=== PATIENT | male | born 1950 | race Caucasian/White ===

== ENCOUNTER → 2018-01-08 15:03 | Outpatient (CLI) | payer MEDICARE, OTHER, SELFPAY ==
--- NOTE | 2018-01-08 15:08 | CI_ITS ---
Cerebrovascular Exam Indications: 780.4 Dizziness and giddiness. IMPRESSIONS 1. The bilateral vertebral arteries are patent with normal antegrade flow. 2. Study suggests less than 20% stenosis involving the right internal carotid artery and the left internal carotid artery. History: Transient ischemic attack (2013) Risk factors: Current tobacco use. Diabetes mellitus. Carotid duplex study. Complete study and Doppler flow study including spectral analysis, color and dodge scale imaging. Height: Height: 182.9cm. Height: 72in. Weight: Weight: 103.4kg. Weight: 227.5lb. Body mass index: BMI: 30.9kg/m^2. Body surface area: BSA: 2.32m^2. Location: Vascular laboratory. Patient status: Outpatient. Tables: Arterial flow: + +--------+--------+ Location V sys V ed + +--------+--------+ Right CCA - proximal 116cm/s 20.4cm/s + +--------+--------+ Right CCA - distal 89.6cm/s 22cm/s + +--------+--------+ Right ECA 84.9cm/s -------- + +--------+--------+ Right ICA - proximal 44.7cm/s 15.4cm/s + +--------+--------+ Right ICA - mid 64.5cm/s 16.6cm/s + +--------+--------+ Right ICA - distal 86.1cm/s 26.8cm/s + +--------+--------+ Right vertebral 56.6cm/s -------- + +--------+--------+ Left CCA - proximal 130cm/s 16.5cm/s + +--------+--------+ Left CCA - distal 109cm/s 18.1cm/s + +--------+--------+ Left ECA 111cm/s -------- + +--------+--------+ Left ICA - proximal 60.9cm/s 14.2cm/s + +--------+--------+ Left ICA - mid 103cm/s 25.1cm/s + +--------+--------+ Left ICA - distal 92.2cm/s 29.3cm/s + +--------+--------+ Left vertebral 46.1cm/s -------- + +--------+--------+ Velocity ratios: + + + + + + Right, V sys Right, V ed Left, V sys Left, V ed + + + + + + Max ICA/dist CCA 0.96 1.22 0.94 1.62 + + + + + + (Report amended ) Electronically signed by: Luis Miguel Fay [id number]
== END ==
PROVIDERS: PCP Nurse Practitioner Family; Visit Provider Nurse Practitioner
DX: R42 Dizziness and giddiness (principal)
CPT/HCPCS: 93880

== ENCOUNTER → 2018-07-02 10:21 | Outpatient (CLI) | payer MEDICARE, OTHER, SELFPAY ==
--- NOTE | 2018-07-02 10:38 | XR_ITS ---
XR chest 2V HISTORY: Smoker, hypertension ITS.REASON: TYPE II DIABETES ORDERING PHYSICIAN: Janelle Melendrez PATIENT AGE: 68 years COMPARISON: 01/09/2010 FINDINGS: Unremarkable cardiovascular structures. There is an old left seventh rib fracture. There is increased density overlying the posterior aspect of the left seventh rib somewhat less so than when compared to the previous exam and may be due to underlying scarring. There are no interval radiographs for comparison. The right lung is clear. IMPRESSION: Old left seventh rib fracture with scarring in the left midlung laterally.
[2018-07-02 11:15] LABS: Basophils # 0.1 K/mm3 (0-0.2); Basophils % 0.7 % (0.1-2.0); Eosinophils # 0.2 K/mm3 (0.0-0.4); Eosinophils % 2.4 % (0.1-12.0); Hematocrit 50.6 % (42.0-52.0); Hemoglobin 16.5 g/dL (14.1-18.0); Lymphocytes # 2.8 K/mm3 (0.7-4.5); Lymphocytes % 35.4 K/mm3 (10-50); Mean Corpuscular HGB Conc 32.5 g/dL (31.8-35.4); Mean Corpuscular Hemoglobin 28.8 pg (27.0-31.2); Mean Corpuscular Volume 88.6 fl (80-94); Mean Platelet Volume 7.6 fl (7.4-10.4); Monocytes # 0.5 K/mm3 (0.1-1.0); Monocytes % 6.3 % (1.7-9.3); Neutrophils # 4.3 K/mm3 (1.8-7.8); Neutrophils % 55.2 % (37.0-80.0); Platelet Count 211 K/mm3 (142-424); Red Blood Count 5.72 M/mm3 (4.60-6.20); Red Cell Distribution Width 13.6 % (11.5-17.5); White Blood Count 7.8 K/mm3 (4.8-10.8)
[2018-07-02 11:24] LABS: Activated Partial Thrombo Time 28.2 seconds (23.6-34.0); INR 1.03 (0.9-1.1); Prothrombin Time 10.6 seconds (9.4-11.8)
[2018-07-02 16:14] LABS: Alanine Aminotransferase 21 U/L (12-78); Albumin Level 3.9 gm/dL (3.4-5.0); Albumin/Globulin Ratio 1.1 (1.1-1.8); Alkaline Phosphatase 131 U/L (46-116); Anion Gap 18.3 mEq/L (5-15); Aspartate Amino Transferase 8 U/L (15-37); Bilirubin,Total 0.8 mg/dL (0.2-1.0); Blood Urea Nitrogen 15 mg/dL (7-18); Calcium 9.5 mg/dL (8.5-10.1); Carbon Dioxide 25 mmol/L (21.0-32.0); Chloride 103 mmol/L (98-107); Creatinine,Serum 1.26 mg/dL (0.70-1.30); Estimated Glomerular Filt Rate 57 ml/min (>60); GFR (African American) 69 ML/MIN (>60); Globulin 3.5 gm/dl (1.3-3.2); Glucose 127 mg/dL (74-106); Potassium 5.3 mmoL/L (3.5-5.1); Sodium 141 mmol/L (136-145); Total Protein,Serum 7.4 gm/dL (6.4-8.2)
[2018-07-05 18:26] LABS: CEA 33.9 ng/mL (0.0-4.7)
== END ==
PROVIDERS: Surgery; PCP Family Medicine; Visit Provider Nurse Practitioner Family
DX: C18.9 Malignant neoplasm of colon, unspecified (principal); Z01.818 Encounter for other preprocedural examination; E11.9 Type 2 diabetes mellitus without complications
CPT/HCPCS: 36415; 71046; 80053; 82378; 85025; 85610; 85730; 93005

== ENCOUNTER → 2018-07-05 09:19 | Outpatient (CLI) | payer MEDICARE, OTHER, SELFPAY ==
--- NOTE | 2018-07-05 09:21 | CT_ITS ---
CT abdomen pelvis w con CLINICAL INDICATION: Follow-up: Cancer, evaluate for metastasis ITS.REASON: colon cancer ORDERING PHYSICIAN: Rashawn Guzman MD PATIENT AGE: 68 years COMPARISON: 06/22/2015 TECHNIQUE: Axial images obtained with sagittal and coronal reformats. All CT scans at the facility use one or more dose reduction, viz: automated exposure control, ma/kV adjustment per patient size (including targeted exams where dose is matched to indication, i.e. head), or iterative reconstruction technique. PROCEDURE: Oral Contrast: Redicat IV Contrast: 75 mL of Isovue-370 performed in conjunction with the chest. FINDINGS: There are multiple small hypoattenuating lesions of the liver largest in the right hepatic lobe inferiorly at 7 mm. These are likely due to small cysts. The spleen, right adrenal gland and pancreas are unremarkable. There are few small gallstones present. No gallbladder wall thickening or distention. Normal left adrenal gland is not identified. There are 2 faint nodular opacities in the left adrenal bed less than 1 cm not significantly change. Surgical clips are present in this region as well.. No renal or ureteral calculi or hydronephrosis. There is mild stranding of perinephric renal fat which is nonspecific and was present on the previous exam. No intestinal obstruction or free air. The appendix is not clearly delineated. The cecum is flexed upon itself residing in the right upper quadrant. There is thickening of the anterior cecal wall which abuts the anterior abdominal wall. The area of colon cancer is not no. This could be the area of neoplastic involvement. This area of thickening is in direct contact to the posterior aspect of the anterior abdominal wall. There is diverticulosis of the descending and sigmoid colon. No evidence of diverticulitis. There is mild prominence of the prostate. No pelvic mass or abnormal fluid collection. No pelvic or abdominal adenopathy. No bony lytic or blastic changes. IMPRESSION: 1. Focal thickening of the anterior wall of the cecum in direct contact with the deep aspect of the anterior abdominal wall. This may only be positional. One cannot exclude involvement of the anterior abdominal wall based on these images however. Please correlate as to the patient's area of colon cancer within the colon. 2. Multiple hypoattenuating lesions of the liver consistent with cysts. No convincing evidence of metastatic disease. 3. Colonic diverticulosis
--- NOTE | 2018-07-05 09:21 | CT_ITS ---
CT chest w con HISTORY: Follow-up: Cancer, evaluate for metastasis ITS.REASON: colon cancer ORDERING PHYSICIAN: Rashawn Guzman MD PATIENT AGE: 68 years COMPARISON: None TECHNIQUE: Axial images obtained following the administration of 75 mL of Isovue 370 . Sagittal, and coronal reformatted images are also generated and reviewed. All CT scans at the facility use one or more dose reduction, viz: automated exposure control, ma/kV adjustment per patient size (including targeted exams where dose is matched to indication, i.e. head), or iterative reconstruction technique. FINDINGS: No mediastinal or hilar mass or adenopathy. There is small mediastinal and hilar lymph nodes. There are coronary artery calcifications. Normal heart size. No evidence of pericardial effusion. There is an azygos fissure is normal variant 3 mm noncalcified pulmonary nodule right upper lobe image #34. A 5 mm noncalcified nodular densities present in the right upper lobe anteriorly image #37. A 7 mm nodular opacity is present in the left anterior perihilar region image # 37 and may be due to a small lymph node. There is a calcified granuloma in the left upper lobe. Atelectatic or fibrotic changes are present in the left lower lobe. No effusions or infiltrates. There is no fracture of the left a and seventh ribs with some pleural thickening deep to the left seventh rib fracture.. No bony destructive process. No lytic or blastic lesions. IMPRESSION: 1. No convincing evidence of metastasis. There are a few small pulmonary nodules. These are nonspecific and may be incidental. Cannot completely exclude the possibility of early metastasis. Therefore, follow-up is recommended 2. Old left seventh and eighth rib fractures with underlying pleural reaction
== END ==
PROVIDERS: PCP Family Medicine; Visit Provider Surgery
DX: C18.9 Malignant neoplasm of colon, unspecified (principal); Z03.89 Encounter for observation for other suspected diseases and conditions ruled out
CPT/HCPCS: 71260; 74177; Q9967

== ENCOUNTER → 2018-07-26 11:14 | Outpatient (CLI) | payer MEDICARE, OTHER, SELFPAY ==
--- NOTE | 2018-07-26 11:29 | NVE_ITS ---
Venous Exam Indications: 729.81 Swelling of limb. 729.5 Pain in limb. IMPRESSIONS Moderate, acute, occlusive deep vein thrombosis involving the deep veins of the left lower extremity, left common femoral vein, left femoral vein, and left popliteal vein History: Left lower extremity pain. Swelling of the left lower extremity. PMH: Deep vein thrombosis. Patient states he had a DVT many years ago in the LLE near the knee. No record at [facility]. Risk factors: Current tobacco use. Malignancy: Colon. Patient recently diagnosed with colon cancer. He is scheduled for colon surgery next week. He states he began having pain in the left upper thigh 1-2 days ago. He states it feels similar to his previous DVT. He went to the emergency room last night for evaluation of his leg due to upcoming surgery. Medications: Patient recently stopped taking Aggrenox due to upcoming surgery. Left lower extremity venous duplex evaluation. Doppler flow study including spectral analysis, color and dodge scale imaging. Location: Vascular laboratory. Patient status: Outpatient. CRITICAL FINDINGS - Reported to: Janelle Melendrez - Read back and verified. - 07/26/18 - 11:45 - LLE positive for DVT in the CFV, Femoral vein, POPV Tables: Venous flow and imaging: + + + + Location Overall Flow properties + + + + Left common femoral Totally occluded Partially compressible + + + + Left saphenofemoral Totally occluded Partially compressible junction + + + + Left profunda femoral Totally occluded Partially compressible + + + + Left femoral Totally occluded Diminished spontaneity; no augmentation; noncompressible + + + + Left greater saphenous Patent Normal phasicity; spontaneous; normal augmentation; compressible + + + + Left popliteal Totally occluded No augmentation; noncompressible + + + + Left posterior tibial Patent Compressible + + + + Left peroneal Patent Compressible + + + + Left gastrocnemius Patent Compressible + + + + Left soleal Patent Compressible + + + + (Report amended ) Electronically signed by: Luis Miguel Fay [id number]
== END ==
PROVIDERS: PCP Nurse Practitioner Family; Visit Provider Nurse Practitioner Family
DX: R60.1 Generalized edema (principal); M79.89 Other specified soft tissue disorders
CPT/HCPCS: 93971

== ENCOUNTER → 2018-08-07 08:24 | Outpatient (CLI) | payer MEDICARE, OTHER, SELFPAY ==
--- NOTE | 2018-08-07 | NVE_ITS ---
Venous Exam Indications: 729.5 Pain in limb. IMPRESSIONS Deep vein thrombosis involving the left common femoral vein, left femoral vein, left popliteal vein, Left posterior tib, and Left peroneal History: PMH: Deep vein thrombosis. Risk factors: Malignancy: colon ca. Pt recentlu dx with colon cancer, DVT dx on 07/26/18, repeat doppler today because surgeon wants to remove portion of colon on 08/12/18. pt been on Xarelto since 08/07/18. Pt recently stopped Aggrenox due to upcoming surgery. Left lower extremity venous duplex evaluation. Doppler flow study including spectral analysis, color and dodge scale imaging. Location: Vascular laboratory. Patient status: Outpatient. Tables: Venous flow and imaging: + + + + Location Overall Flow properties + + + + Left common femoral Partially occluded Diminished phasicity; diminished spontaneity; diminished augmentation; partially compressible; reflux + + + + Left saphenofemoral Partially occluded Partially compressible junction + + + + Left profunda femoral Partially occluded Partially compressible + + + + Left femoral Partially occluded Normal phasicity; spontaneous; normal augmentation; compressible + + + + Left greater saphenous Patent Normal phasicity; spontaneous; normal augmentation; compressible + + + + Left popliteal Partially occluded Diminished phasicity; not spontaneous; diminished augmentation; partially compressible + + + + Left posterior tibial Partially occluded Partially compressible + + + + Left peroneal Partially occluded Partially compressible + + + + Left gastrocnemius Patent Compressible + + + + Left soleal Patent Compressible + + + + (Report amended ) Electronically signed by: Luis Miguel Fay [id number]
== END ==
PROVIDERS: PCP Nurse Practitioner Family; Visit Provider Nurse Practitioner Family
DX: I82.412 Acute embolism and thrombosis of left femoral vein (principal); M79.605 Pain in left leg
CPT/HCPCS: 93971

== ENCOUNTER → 2018-10-16 10:41 | Outpatient (CLI) | payer MEDICARE, OTHER, SELFPAY ==
[2018-10-16 12:07] LABS: Basophils # 0.1 K/mm3 (0-0.2); Eosinophils # 0.1 K/mm3 (0.0-0.4); Eosinophils % 2.2 % (0.1-12.0); Hematocrit 47.3 % (42.0-52.0); Hemoglobin 14.9 g/dL (14.1-18.0); Lymphocytes # 2.2 K/mm3 (0.7-4.5); Lymphocytes % 39.9 % (10-50); Mean Corpuscular HGB Conc 31.6 g/dL (31.8-35.4); Mean Corpuscular Hemoglobin 27.5 pg (27.0-31.2); Mean Corpuscular Volume 86.9 fl (80-94); Mean Platelet Volume 8.1 fl (7.4-10.4); Monocytes # 0.4 K/mm3 (0.1-1.0); Monocytes % 7.3 % (1.7-9.3); Neutrophils # 2.8 K/mm3 (1.8-7.8); Neutrophils % 49.5 % (37.0-80.0); Platelet Count 195 K/mm3 (142-424); Red Blood Count 5.44 M/mm3 (4.60-6.20); White Blood Count 5.6 K/mm3 (4.8-10.8)
[2018-10-16 13:11] LABS: Alanine Aminotransferase 27 U/L (12-78); Albumin Level 3.6 gm/dL (3.4-5.0); Albumin/Globulin Ratio 1.1 (1.1-1.8); Alkaline Phosphatase 98 U/L (46-116); Anion Gap 15.2 mEq/L (5-15); Aspartate Amino Transferase 16 U/L (15-37); Bilirubin,Total 0.5 mg/dL (0.2-1.0); Blood Urea Nitrogen 11 mg/dL (7-18); Carbon Dioxide 27 mmol/L (21.0-32.0); Chloride 102 mmol/L (98-107); Creatinine,Serum 1.06 mg/dL (0.70-1.30); Estimated Glomerular Filt Rate 70 ml/min (>60); GFR (African American) 84 ML/MIN (>60); Globulin 3.2 gm/dl (1.3-3.2); Glucose 129 mg/dL (74-106); Potassium 4.2 mmoL/L (3.5-5.1); Sodium 140 mmol/L (136-145); Total Protein,Serum 6.8 gm/dL (6.4-8.2)
== END ==
PROVIDERS: Visit Provider Internal Medicine Medical Oncology
DX: C18.9 Malignant neoplasm of colon, unspecified (principal)
CPT/HCPCS: 36415; 80053; 85025

== ENCOUNTER 2018-10-21 09:01 | Outpatient (CLI) | payer MEDICARE, OTHER, SELFPAY ==
[2018-10-21] VITALS (10 sets, daily range): BP systolic 118–140; BP diastolic 50–67; PULSE 56–68; RESP 18–20; TEMP 36.7–36.9; O2SAT 95–96
== END 2018-10-21 13:10 | disposition home or self-care (01) ==
LOC: INF 09:01
PROVIDERS: Visit Provider Internal Medicine Medical Oncology
DX: Z51.11 Encounter for antineoplastic chemotherapy (principal); C18.9 Malignant neoplasm of colon, unspecified
CPT/HCPCS: 96413; 96415; J7060; J9263; Q0166

== ENCOUNTER → 2018-11-06 12:32 | Outpatient (CLI) | payer MEDICARE, OTHER, SELFPAY ==
[2018-11-06 13:26] LABS: Basophils % 0.4 % (0.1-2.0); Eosinophils # 0.1 K/mm3 (0.0-0.4); Eosinophils % 1.9 % (0.1-12.0); Hematocrit 44.8 % (42.0-52.0); Hemoglobin 14.2 g/dL (14.1-18.0); Lymphocytes # 2.4 K/mm3 (0.7-4.5); Lymphocytes % 42.3 % (10-50); Mean Corpuscular HGB Conc 31.8 g/dL (31.8-35.4); Mean Corpuscular Hemoglobin 27.4 pg (27.0-31.2); Mean Corpuscular Volume 86.2 fl (80-94); Mean Platelet Volume 7.2 fl (7.4-10.4); Monocytes # 0.3 K/mm3 (0.1-1.0); Monocytes % 5.9 % (1.7-9.3); Neutrophils # 2.8 K/mm3 (1.8-7.8); Neutrophils % 49.5 % (37.0-80.0); Platelet Count 180 K/mm3 (142-424); Red Blood Count 5.19 M/mm3 (4.60-6.20); Red Cell Distribution Width 14.9 % (11.5-17.5); White Blood Count 5.7 K/mm3 (4.8-10.8)
[2018-11-06 13:44] LABS: Alanine Aminotransferase 35 U/L (12-78); Albumin Level 3.5 gm/dL (3.4-5.0); Albumin/Globulin Ratio 1.1 (1.1-1.8); Alkaline Phosphatase 118 U/L (46-116); Anion Gap 13.6 mEq/L (5-15); Aspartate Amino Transferase 15 U/L (15-37); Bilirubin,Total 0.5 mg/dL (0.2-1.0); Blood Urea Nitrogen 8 mg/dL (7-18); Calcium 8.5 mg/dL (8.5-10.1); Carbon Dioxide 25 mmol/L (21.0-32.0); Chloride 104 mmol/L (98-107); Creatinine,Serum 1.13 mg/dL (0.70-1.30); Estimated Glomerular Filt Rate 65 ml/min (>60); GFR (African American) 78 ML/MIN (>60); Globulin 3.1 gm/dl (1.3-3.2); Glucose 125 mg/dL (74-106); Potassium 4.6 mmoL/L (3.5-5.1); Sodium 138 mmol/L (136-145); Total Protein,Serum 6.6 gm/dL (6.4-8.2)
== END ==
PROVIDERS: Visit Provider Internal Medicine Medical Oncology
DX: C18.9 Malignant neoplasm of colon, unspecified (principal)
CPT/HCPCS: 36415; 80053; 85025

== ENCOUNTER 2018-11-11 09:15 | Outpatient (CLI) | payer MEDICARE, OTHER, SELFPAY ==
[2018-11-11] VITALS (8 sets, daily range): BP systolic 119–131; BP diastolic 60–69; PULSE 61–74; RESP 18–20; TEMP 36.5; O2SAT 96–97; BMI 29.7
== END 2018-11-11 14:00 | disposition home or self-care (01) ==
LOC: INF 09:37
PROVIDERS: Visit Provider Internal Medicine Medical Oncology
DX: Z51.11 Encounter for antineoplastic chemotherapy (principal); C18.9 Malignant neoplasm of colon, unspecified
CPT/HCPCS: 96413; 96415; J1642; J7060; J9263; Q0166

== ENCOUNTER 2018-12-02 08:48 | Outpatient (CLI) | payer MEDICARE, OTHER, SELFPAY ==
[2018-12-02] VITALS (8 sets, daily range): BP systolic 116–130; BP diastolic 63–74; PULSE 64–68; RESP 20; TEMP 36.9; O2SAT 95; BMI 28.6
[2018-12-02 09:11] LABS: Basophils % 0.8 % (0.1-2.0); Eosinophils # 0.1 K/mm3 (0.0-0.4); Eosinophils % 2.1 % (0.1-12.0); Hematocrit 43.9 % (42.0-52.0); Hemoglobin 14.2 g/dL (14.1-18.0); Lymphocytes % 41.7 % (10-50); Mean Corpuscular HGB Conc 32.3 g/dL (31.8-35.4); Mean Corpuscular Volume 86.7 fl (80-94); Mean Platelet Volume 6.7 fl (7.4-10.4); Monocytes # 0.3 K/mm3 (0.1-1.0); Monocytes % 6.9 % (1.7-9.3); Neutrophils # 2.3 K/mm3 (1.8-7.8); Neutrophils % 48.4 % (37.0-80.0); Platelet Count 135 K/mm3 (142-424); Red Blood Count 5.06 M/mm3 (4.60-6.20); Red Cell Distribution Width 19.4 % (11.5-17.5); White Blood Count 4.8 K/mm3 (4.8-10.8)
[2018-12-02 09:23] LABS: Alanine Aminotransferase 28 U/L (12-78); Albumin Level 3.4 gm/dL (3.4-5.0); Alkaline Phosphatase 93 U/L (46-116); Anion Gap 13.1 mEq/L (5-15); Aspartate Amino Transferase 17 U/L (15-37); Bilirubin,Total 0.6 mg/dL (0.2-1.0); Blood Urea Nitrogen 10 mg/dL (7-18); Calcium 8.6 mg/dL (8.5-10.1); Carbon Dioxide 25 mmol/L (21.0-32.0); Chloride 105 mmol/L (98-107); Creatinine Clearance Estimated 90 mL/min (50-200); Creatinine,Serum 1.08 mg/dL (0.70-1.30); Estimated Glomerular Filt Rate 68 ml/min (>60); GFR (African American) 83 ML/MIN (>60); Globulin 3.4 gm/dl (1.3-3.2); Glucose 108 mg/dL (74-106); Potassium 4.1 mmoL/L (3.5-5.1); Sodium 139 mmol/L (136-145); Total Protein,Serum 6.8 gm/dL (6.4-8.2)
== END 2018-12-02 13:30 | disposition home or self-care (01) ==
LOC: INF 08:48
PROVIDERS: Visit Provider Internal Medicine Medical Oncology
DX: Z51.11 Encounter for antineoplastic chemotherapy (principal); C18.9 Malignant neoplasm of colon, unspecified
CPT/HCPCS: 80053; 85025; 96413; 96415; J1642; J7060; J9263; Q0166

== ENCOUNTER 2018-12-23 09:14 | Outpatient (CLI) | payer MEDICARE, OTHER, SELFPAY ==
[2018-12-23] VITALS (9 sets, daily range): BP systolic 117–156; BP diastolic 56–77; PULSE 64–74; RESP 20; TEMP 36.8; O2SAT 97–98; BMI 28.6
[2018-12-23 09:30] LABS: Basophils # 0.1 K/mm3 (0-0.2); Eosinophils # 0.1 K/mm3 (0.0-0.4); Hematocrit 45.9 % (42.0-52.0); Hemoglobin 15.1 g/dL (14.1-18.0); Lymphocytes % 42.9 % (10-50); Mean Corpuscular HGB Conc 32.9 g/dL (31.8-35.4); Mean Corpuscular Volume 88.4 fl (80-94); Mean Platelet Volume 7.6 fl (7.4-10.4); Monocytes # 0.3 K/mm3 (0.1-1.0); Monocytes % 6.9 % (1.7-9.3); Neutrophils # 2.2 K/mm3 (1.8-7.8); Neutrophils % 47.2 % (37.0-80.0); Platelet Count 151 K/mm3 (142-424); Red Blood Count 5.19 M/mm3 (4.60-6.20); Red Cell Distribution Width 21.5 % (11.5-17.5); White Blood Count 4.6 K/mm3 (4.8-10.8)
[2018-12-23 09:43] LABS: Alanine Aminotransferase 30 U/L (12-78); Albumin Level 3.6 gm/dL (3.4-5.0); Alkaline Phosphatase 98 U/L (46-116); Anion Gap 13.3 mEq/L (5-15); Aspartate Amino Transferase 23 U/L (15-37); Bilirubin,Total 0.9 mg/dL (0.2-1.0); Blood Urea Nitrogen 9 mg/dL (7-18); Calcium 8.8 mg/dL (8.5-10.1); Carbon Dioxide 25 mmol/L (21.0-32.0); Chloride 105 mmol/L (98-107); Creatinine Clearance Estimated 97 mL/min (50-200); Creatinine,Serum 0.95 mg/dL (0.70-1.30); Estimated Glomerular Filt Rate 79 ml/min (>60); GFR (African American) 96 ML/MIN (>60); Globulin 3.5 gm/dl (1.3-3.2); Glucose 115 mg/dL (74-106); Potassium 4.3 mmoL/L (3.5-5.1); Sodium 139 mmol/L (136-145); Total Protein,Serum 7.1 gm/dL (6.4-8.2)
== END 2018-12-23 14:15 | disposition home or self-care (01) ==
LOC: INF 09:14
PROVIDERS: Visit Provider Internal Medicine Medical Oncology
DX: Z51.11 Encounter for antineoplastic chemotherapy (principal); C18.9 Malignant neoplasm of colon, unspecified
CPT/HCPCS: 80053; 85025; 96413; 96415; J7060; J9263; Q0166

== ENCOUNTER 2019-01-14 08:55 | Outpatient (CLI) | payer MEDICARE, OTHER, SELFPAY ==
[2019-01-14] VITALS (8 sets, daily range): BP systolic 136–173; BP diastolic 71–79; PULSE 64–69; RESP 18; TEMP 36.6; O2SAT 97–98; BMI 28.0
[2019-01-14 09:14] LABS: Basophils % 0.5 % (0.1-2.0); Eosinophils # 0.1 K/mm3 (0.0-0.4); Eosinophils % 2.1 % (0.1-12.0); Hematocrit 44.3 % (42.0-52.0); Hemoglobin 14.8 g/dL (14.1-18.0); Lymphocytes % 46.5 % (10-50); Mean Corpuscular HGB Conc 33.3 g/dL (31.8-35.4); Mean Corpuscular Hemoglobin 30.3 pg (27.0-31.2); Mean Corpuscular Volume 90.9 fl (80-94); Mean Platelet Volume 7.8 fl (7.4-10.4); Monocytes # 0.3 K/mm3 (0.1-1.0); Monocytes % 6.9 % (1.7-9.3); Neutrophils # 1.9 K/mm3 (1.8-7.8); Platelet Count 117 K/mm3 (142-424); Red Blood Count 4.88 M/mm3 (4.60-6.20); Red Cell Distribution Width 22.5 % (11.5-17.5); White Blood Count 4.4 K/mm3 (4.8-10.8)
[2019-01-14 09:36] LABS: Alanine Aminotransferase 27 U/L (12-78); Albumin Level 3.6 gm/dL (3.4-5.0); Alkaline Phosphatase 114 U/L (46-116); Anion Gap 14.2 mEq/L (5-15); Aspartate Amino Transferase 23 U/L (15-37); Bilirubin,Total 0.8 mg/dL (0.2-1.0); Blood Urea Nitrogen 12 mg/dL (7-18); Calcium 8.6 mg/dL (8.5-10.1); Carbon Dioxide 25 mmol/L (21.0-32.0); Chloride 105 mmol/L (98-107); Creatinine Clearance Estimated 92 mL/min (50-200); Creatinine,Serum 1.04 mg/dL (0.70-1.30); Estimated Glomerular Filt Rate 71 ml/min (>60); GFR (African American) 86 ML/MIN (>60); Globulin 3.5 gm/dl (1.3-3.2); Glucose 106 mg/dL (74-106); Potassium 4.2 mmoL/L (3.5-5.1); Sodium 140 mmol/L (136-145); Total Protein,Serum 7.1 gm/dL (6.4-8.2)
== END 2019-01-14 14:00 | disposition home or self-care (01) ==
LOC: INF 08:55
PROVIDERS: Visit Provider Internal Medicine Medical Oncology
DX: Z51.11 Encounter for antineoplastic chemotherapy (principal); C18.9 Malignant neoplasm of colon, unspecified
CPT/HCPCS: 80053; 85025; 96413; 96415; J1642; J7060; J9263; Q0166

== ENCOUNTER → 2019-02-20 14:43 | Outpatient (CLI) | payer MEDICARE, OTHER, SELFPAY ==
[2019-02-20 15:04] LABS: Basophils # 0.1 K/mm3 (0-0.2); Basophils % 0.9 % (0.1-2.0); Eosinophils # 0.1 K/mm3 (0.0-0.4); Eosinophils % 1.8 % (0.1-12.0); Hematocrit 45.2 % (42.0-52.0); Hemoglobin 15.1 g/dL (14.1-18.0); Lymphocytes # 2.5 K/mm3 (0.7-4.5); Mean Corpuscular HGB Conc 33.4 g/dL (31.8-35.4); Mean Corpuscular Volume 98.7 fl (80-94); Mean Platelet Volume 7.4 fl (7.4-10.4); Monocytes # 0.3 K/mm3 (0.1-1.0); Neutrophils # 2.1 K/mm3 (1.8-7.8); Neutrophils % 41.4 % (37.0-80.0); Platelet Count 119 K/mm3 (142-424); Red Blood Count 4.58 M/mm3 (4.60-6.20); Red Cell Distribution Width 21.4 % (11.5-17.5); White Blood Count 5.1 K/mm3 (4.8-10.8)
[2019-02-20 15:14] LABS: MANUAL DIFFERENTIAL MANUAL DIFFERENTIAL (MANUAL DIFF)
[2019-02-20 17:03] LABS: Alanine Aminotransferase 29 U/L (12-78); Albumin/Globulin Ratio 1.1 (1.1-1.8); Alkaline Phosphatase 107 U/L (46-116); Anion Gap 11.5 mEq/L (5-15); Aspartate Amino Transferase 19 U/L (15-37); Blood Urea Nitrogen 16 mg/dL (7-18); Carbon Dioxide 29 mmol/L (21.0-32.0); Chloride 103 mmol/L (98-107); Creatinine,Serum 1.14 mg/dL (0.70-1.30); Estimated Glomerular Filt Rate 64 ml/min (>60); GFR (African American) 78 ML/MIN (>60); Globulin 3.5 gm/dl (1.3-3.2); Glucose 102 mg/dL (74-106); Potassium 4.5 mmoL/L (3.5-5.1); Sodium 139 mmol/L (136-145); Total Protein,Serum 7.5 gm/dL (6.4-8.2)
[2019-02-20 17:48] LABS: Lymphocytes % 44 % (10-50); Monocytes % 6 % (2-9); Neutrophils % 49 % (42-76); Platelet Estimate Normal; RBC Morphology Normal; Total Cells Counted 100
== END ==
PROVIDERS: Visit Provider Internal Medicine Medical Oncology
DX: C18.9 Malignant neoplasm of colon, unspecified (principal)
CPT/HCPCS: 36415; 80053; 85007; 85025

== ENCOUNTER 2019-02-25 09:31 | Outpatient (CLI) | payer MEDICARE, OTHER, SELFPAY | END 2019-02-25 09:45 | disposition home or self-care (01) | LOC: INF 09:31 | PROVIDERS: Visit Provider Internal Medicine Medical Oncology | DX: C18.9 Malignant neoplasm of colon, unspecified (principal); Z45.2 Encounter for adjustment and management of vascular access device | CPT/HCPCS: 96523 ==

== ENCOUNTER → 2019-04-07 12:37 | Outpatient (CLI) | payer MEDICARE, OTHER, SELFPAY ==
[2019-04-07 13:34] LABS: Basophils # 0.1 K/mm3 (0-0.2); Basophils % 0.9 % (0.1-2.0); Eosinophils # 0.3 K/mm3 (0.0-0.4); Eosinophils % 4.5 % (0.1-12.0); Hematocrit 47.9 % (42.0-52.0); Hemoglobin 15.2 g/dL (14.1-18.0); Lymphocytes # 2.6 K/mm3 (0.7-4.5); Lymphocytes % 37.6 % (10-50); Mean Corpuscular HGB Conc 31.7 g/dL (31.8-35.4); Mean Corpuscular Hemoglobin 30.4 pg (27.0-31.2); Mean Platelet Volume 7.8 fl (7.4-10.4); Monocytes # 0.5 K/mm3 (0.1-1.0); Monocytes % 7.5 % (1.7-9.3); Neutrophils # 3.4 K/mm3 (1.8-7.8); Neutrophils % 49.5 % (37.0-80.0); Platelet Count 157 K/mm3 (142-424); Red Blood Count 4.99 M/mm3 (4.60-6.20); Red Cell Distribution Width 16.4 % (11.5-17.5); White Blood Count 6.9 K/mm3 (4.8-10.8)
[2019-04-07 14:48] LABS: Alanine Aminotransferase 30 U/L (12-78); Albumin Level 3.5 gm/dL (3.4-5.0); Albumin/Globulin Ratio 1.1 (1.1-1.8); Alkaline Phosphatase 151 U/L (46-116); Anion Gap 14.3 mEq/L (5-15); Aspartate Amino Transferase 23 U/L (15-37); Bilirubin,Total 0.9 mg/dL (0.2-1.0); Blood Urea Nitrogen 18 mg/dL (7-18); Carbon Dioxide 25 mmol/L (21.0-32.0); Chloride 106 mmol/L (98-107); Creatinine,Serum 1.27 mg/dL (0.70-1.30); Estimated Glomerular Filt Rate 57 ml/min (>60); GFR (African American) 68 ML/MIN (>60); Globulin 3.2 gm/dl (1.3-3.2); Glucose 140 mg/dL (74-106); Potassium 4.3 mmoL/L (3.5-5.1); Sodium 141 mmol/L (136-145); Total Protein,Serum 6.7 gm/dL (6.4-8.2)
== END ==
PROVIDERS: Visit Provider Internal Medicine Medical Oncology
DX: G89.3 Neoplasm related pain (acute) (chronic) (principal)
CPT/HCPCS: 36415; 80053; 85025; 86316

== ENCOUNTER 2019-04-11 09:28 | Outpatient (CLI) | payer MEDICARE, OTHER, SELFPAY ==
--- NOTE | 2019-04-11 09:35 | CT_ITS ---
CT abdomen pelvis w con CLINICAL INDICATION: ITS.REASON: COLON CA ORDERING PHYSICIAN: Jenny Joyner MD PATIENT AGE: 69 years COMPARISON: 07/05/2018. TECHNIQUE: Axial images obtained with sagittal and coronal reformats. All CT scans at the facility use one or more dose reduction, viz: automated exposure control, ma/kV adjustment per patient size (including targeted exams where dose is matched to indication, i.e. head), or iterative reconstruction technique. PROCEDURE: Oral Contrast: None IV Contrast: Yes . FINDINGS: Lower thorax: There is a new noncalcified 3.0 mm nodule at the lateral base of the right lower lobe of the lung likely involving the anterior segment close to the major fissure on image #14. There is some stable strands of increased density in the posterior left lower lobe. There is also a benign calcified lingular granuloma. There are now multiple new liver hypodensities, with one of the larger foci in the periphery of the posterior right lower lobe measuring 2.0 cm. There are a few other similar lesions although the other foci are smaller. The spleen, pancreas, adrenal glands and kidneys are unremarkable. Urinary bladder is normal. There are aortic calcified plaques without dilatation. There has been partial colectomy on the right side. There are now some new punctate noncalcified nodular densities along the right anterior and right lateral peritoneum. These measure almost 10 mm in size. There are several gallstones without pericholecystic fluid or wall thickening. There is no biliary or pancreatic ductal dilatation. Pelvis appear stable and unremarkable. There is no acute osseous process. Impression: Above-described findings are worrisome for metastatic neoplasm with new liver lesions as well as right-sided possible peritoneal carcinomatosis. Also there is a new right lung base 3 mm noncalcified nodule, possibly metastatic in nature. Uncomplicated cholelithiasis. Left lower lobe lung scarring.
== END 2019-04-11 10:25 | disposition home or self-care (01) ==
LOC: INF 09:29
PROVIDERS: PCP Internal Medicine Medical Oncology; Visit Provider Internal Medicine Medical Oncology
DX: C18.9 Malignant neoplasm of colon, unspecified (principal); Z45.2 Encounter for adjustment and management of vascular access device
CPT/HCPCS: 74177; J1642; Q9967

== ENCOUNTER → 2019-04-30 12:51 | Outpatient (CLI) | payer MEDICARE, OTHER, SELFPAY ==
--- NOTE | 2019-04-30 13:07 | NVE_ITS ---
Venous Exam Indications: Follow-up DVT 453.40. IMPRESSIONS 1. There is no evidence of significant Reflux. 2. No evidence of deep or superficial vein thrombosis involving the right lower extremity and left lower extremity History: Medications: Enoxaparin (Lovenox) injections x 7 months. Left lower extremity venous duplex evaluation. Doppler flow study including spectral analysis, color and dodge scale imaging. Location: Vascular laboratory. Patient status: Outpatient. Tables: Venous flow and imaging: + +-------+ + Location Overall Flow properties + +-------+ + Left common femoral Patent Normal phasicity; spontaneous; normal augmentation; compressible + +-------+ + Left saphenofemoral junction Patent Compressible + +-------+ + Left profunda femoral Patent Compressible + +-------+ + Left femoral Patent Normal phasicity; spontaneous; normal augmentation; compressible; reflux + +-------+ + Left greater saphenous Patent Normal phasicity; spontaneous; normal augmentation; compressible; reflux + +-------+ + Left popliteal Patent Normal phasicity; spontaneous; normal augmentation; compressible + +-------+ + Left posterior tibial Patent Compressible + +-------+ + Left peroneal Patent Compressible + +-------+ + Left gastrocnemius Patent Compressible + +-------+ + Left soleal Patent Compressible + +-------+ + (Report amended ) Electronically signed by: Luis Miguel Fay [id number]
== END ==
PROVIDERS: PCP Family Medicine; Visit Provider Internal Medicine Medical Oncology
DX: M79.605 Pain in left leg (principal); C18.9 Malignant neoplasm of colon, unspecified
CPT/HCPCS: 93971

== ENCOUNTER → 2019-05-14 09:00 | Outpatient (CLI) | payer MEDICARE, OTHER, SELFPAY ==
--- NOTE | 2019-05-14 09:08 | US_ITS ---
US abdomen complete HISTORY: Liver nodules, abdominal pain ITS.REASON: ABD MASS ORDERING PHYSICIAN: Janelle Melendrez APRN PATIENT AGE: 69 years COMPARISON: 04/11/2019 FINDINGS: PANCREAS:Unremarkable. No obvious mass or abnormal fluid collection. No ductal dilatation LIVER:There are multiple slightly hypoechoic which are suspicious for metastatic disease. The largest nodule within the right hepatic lobe and measures approximately 2 cm. There is a small amount perihepatic fluid. RIGHT KIDNEY:Unremarkable. Normal size and echogenicity. No hydronephrosis LEFT KIDNEY:Unremarkable. No hydronephrosis. Normal size and echogenicity. GALLBLADDER:Gallbladder is filled with sludge with small stones noted.. No gallbladder wall thickening or pericholecystic fluid or biliary dilatation AORTA:No evidence of aneurysmal dilatation. SPLEEN:Unremarkable. Normal size and echogenicity ASCITES:Small amount of fluid in the perihepatic region and Morison's pouch. Ultrasound was also performed of the palpable abnormality in the right mid abdominal region. There is a somewhat heterogeneous mass in this area which measures 2 x 1 cm and may represent a metastatic focus. This appears to be in the abdominal wall. IMPRESSION: 1. Multiple hepatic lesions suspicious for metastatic disease. 2. Bladder filled with sludge with small stones. 3. Probable bleb abnormality in the right mid abdominal region corresponds to a 2 x 1 cm heterogeneous somewhat irregular nodule and may represent a metastatic focus to the abdominal wall
== END ==
PROVIDERS: PCP Nurse Practitioner Family; Visit Provider Nurse Practitioner Family
DX: R19.09 Other intra-abdominal and pelvic swelling, mass and lump (principal)
CPT/HCPCS: 76700

== ENCOUNTER → 2019-05-15 11:05 | Outpatient (CLI) | payer MEDICARE, OTHER, SELFPAY ==
--- NOTE | 2019-05-15 11:16 | XR_ITS ---
XR abdomen min 2V HISTORY: ITS.REASON: COLON CA, VOMITING, CONSTIPATION ORDERING PHYSICIAN: Jenny Joyner MD PATIENT AGE: 69 years COMPARISON: 09/16/2014 FINDINGS: There is a mild amount of retained colonic feces within the transverse and descending and sigmoid colon. Suture line is present in the right lower quadrant. No evidence of small bowel obstruction. IMPRESSION: Constipation, postsurgical change
== END ==
PROVIDERS: PCP Family Medicine; Visit Provider Internal Medicine Medical Oncology
DX: C18.9 Malignant neoplasm of colon, unspecified (principal); R11.2 Nausea with vomiting, unspecified; R63.4 Abnormal weight loss; K59.00 Constipation, unspecified
CPT/HCPCS: 74019

== ENCOUNTER 2019-05-20 09:16 | Outpatient (CLI) | payer MEDICARE, OTHER, SELFPAY ==
[2019-05-20 09:18] VITALS: BMI 26.2
[2019-05-20 09:49] LABS: Basophils # 0.1 K/mm3 (0-0.2); Basophils % 0.6 % (0.1-2.0); Eosinophils # 0.1 K/mm3 (0.0-0.4); Eosinophils % 1.1 % (0.1-12.0); Hematocrit 40.1 % (42.0-52.0); Hemoglobin 13.5 g/dL (14.1-18.0); Lymphocytes # 1.8 K/mm3 (0.7-4.5); Lymphocytes % 22.4 % (10-50); Mean Corpuscular HGB Conc 33.7 g/dL (31.8-35.4); Mean Corpuscular Volume 88.9 fl (80-94); Mean Platelet Volume 7.4 fl (7.4-10.4); Monocytes # 0.5 K/mm3 (0.1-1.0); Monocytes % 6.9 % (1.7-9.3); Neutrophils # 5.4 K/mm3 (1.8-7.8); Neutrophils % 68.9 % (37.0-80.0); Platelet Count 336 K/mm3 (142-424); Red Blood Count 4.51 M/mm3 (4.60-6.20); Red Cell Distribution Width 14.9 % (11.5-17.5); White Blood Count 7.8 K/mm3 (4.8-10.8)
[2019-05-20 09:57] LABS: Alanine Aminotransferase 19 U/L (12-78); Albumin Level 2.8 gm/dL (3.4-5.0); Albumin/Globulin Ratio 0.7 (1.1-1.8); Alkaline Phosphatase 249 U/L (46-116); Anion Gap 14.4 mEq/L (5-15); Aspartate Amino Transferase 18 U/L (15-37); Bilirubin,Total 1.3 mg/dL (0.2-1.0); Blood Urea Nitrogen 22 mg/dL (7-18); Calcium 8.7 mg/dL (8.5-10.1); Carbon Dioxide 28 mmol/L (21.0-32.0); Chloride 91 mmol/L (98-107); Creatinine Clearance Estimated 59 mL/min (50-200); Creatinine,Serum 1.48 mg/dL (0.70-1.30); Estimated Glomerular Filt Rate 47 ml/min (>60); GFR (African American) 57 ML/MIN (>60); Globulin 4.2 gm/dl (1.3-3.2); Glucose 124 mg/dL (74-106); Potassium 4.4 mmoL/L (3.5-5.1); Sodium 129 mmol/L (136-145)
[2019-05-20 11:27] VITALS: BP 101/48; PULSE 75; RESP 18; O2SAT 97
[2019-05-20 11:57] VITALS: BP 104/52; PULSE 78; RESP 18; O2SAT 97
[2019-05-20 12:27] VITALS: BP 111/55; PULSE 76; RESP 18; O2SAT 96
[2019-05-20 12:57] VITALS: BP 124/57; PULSE 74; RESP 18; O2SAT 97
[2019-05-20 13:35] VITALS: BP 120/59; PULSE 76; RESP 18; O2SAT 97
== END 2019-05-20 13:35 | disposition home or self-care (01) ==
LOC: INF 09:16
PROVIDERS: Visit Provider Internal Medicine Medical Oncology
DX: Z51.11 Encounter for antineoplastic chemotherapy (principal); C18.9 Malignant neoplasm of colon, unspecified
CPT/HCPCS: 80053; 85025; 96413; 96415; J9206; Q0166

== ENCOUNTER 2019-05-27 05:19 | Inpatient (IN) ==
[2019-05-27 06:13] LABS: Basophils % 0.5 % (0.1-2.0); Hemoglobin 13.6 g/dL (14.1-18.0); Lymphocytes # 0.8 K/mm3 (0.7-4.5); Lymphocytes % 42.5 % (10-50); Mean Corpuscular HGB Conc 33.1 g/dL (31.8-35.4); Mean Corpuscular Volume 86.2 fl (80-94); Mean Platelet Volume 7.2 fl (7.4-10.4); Monocytes # 0.1 K/mm3 (0.1-1.0); Monocytes % 2.6 % (1.7-9.3); Neutrophils % 52.5 % (37.0-80.0); Platelet Count 435 K/mm3 (142-424); Red Blood Count 4.76 M/mm3 (4.60-6.20); Red Cell Distribution Width 14.9 % (11.5-17.5); White Blood Count 1.9 K/mm3 (4.8-10.8)
[2019-05-27 06:20] LABS: INR 1.14 (0.9-1.1); Prothrombin Time 11.8 seconds (9.4-11.8)
[2019-05-27 06:26] LABS: Albumin Level 2.8 gm/dL (3.4-5.0); Albumin/Globulin Ratio 0.5 (1.1-1.8); Bilirubin,Total 1.4 mg/dL (0.2-1.0); Calcium 11.3 mg/dL (8.5-10.1); Globulin 5.7 gm/dl (1.3-3.2); Total Protein,Serum 8.5 gm/dL (6.4-8.2)
--- NOTE | 2019-05-27 06:32 | Emergency Department Note ---
ED Disposition Clinical Impression: CHRIS (acute kidney injury), Intractable pain, Hypercalcemia Colon cancer Qualifiers: Colon location: unspecified part of colon Qualified Code(s): C18.9 - Malignant neoplasm of colon, unspecified Neutropenia Qualifiers: Neutropenia type: secondary to cancer chemotherapy Qualified Code(s): D70.1 - Agranulocytosis secondary to cancer chemotherapy; T45.1X5A - Adverse effect of antineoplastic and immunosuppressive drugs, initial encounter Disposition: Admitted as Observation Condition on Discharge: Fair Instructions: DI for Diarrhea and Traveler's Diarrhea -- Adult, DI for Diarrhea and Traveler's Diarrhea -- Child, DI for Nausea -- Adult, DI for Nausea -- Child Referrals: Herman Rosas MD [Primary Care Provider] - - Critical Care Critical Care Time: No Attestation: On 05/27/19, the high probability of a clinically significant, sudden or life threatening deterioration of the following system(s) required my full and direct attention, intervention and personal management. The time I documented below is in addition to time spent performing reported procedures but includes the fo llowing listed in this critical care notation. Medical Decision Making - Medical Records Medical records reviewed: Yes: I reviewed the patient's medical records. - [place] Inquiry Pt receiving controlled substance: No Vital Signs: 05/27/19 05:29 Temperature 97.7 F Temperature Source Oral Pulse Rate [Right] 107 H Respiratory Rate 18 Blood Pressure [Right Arm] 126/61 Blood Pressure Mean [Right Arm] 82 02 Sat by Pulse Oximetry 99 - Lab Data Lab results reviewed: Yes: I reviewed the patient's lab results. Lab Results 05/27/19 05:30: WBC 1.9 L*, RBC 4.76, Hgb 13.6 L, Hct 41.0 L, MCV 86.2, MCH 28.5, MCHC 33.1, RDW 14.9, Plt Count 435 H, MPV 7.2 L, Neut % (Auto) 52.5, Lymph % (Auto) 42.5, [place] % (Auto) 2.6, Eos % (Auto) 2.0, Baso % (Auto) 0.5, Neut # (Auto) 1.0 L, Lymph # (Auto) 0.8, [place] # (Auto) 0.1, Eos # (Auto) 0.0, Baso # (Auto) 0.0, ESR 49 H 05/27/19 05:45: PT 11.8, INR 1.14 H 05/27/19 05:45: Carbon Dioxide 32, BUN 98 H, Creatinine 3.26 H, Estimated Creat Clear 25, Estimated GFR 19 L*, Est GFR ( Amer) 23 L, Glucose 190 H, Calcium 11.3 H, Total Bilirubin 1.4 H, AST 26, ALT 22, Alkaline Phosphatase 330 H, C-Reactive Protein 30.3 H, Total Protein 8.5 H, Albumin 2.8 L, Globulin 5.7 H , Albumin/Globulin Ratio 0.5 L 05/27/19 05:45: Ammonia 21 05/27/19 05:45: Lactate 2.0 Result diagrams: 05/27/19 05:30 05/27/19 05:45 Orders (Tests/Meds): ED MEDICATIONS Generic Name Dose Route Start Last Admin Trade Name Freq PRN Reason Stop Dose Admin Sodium Chloride 1,000 mls @ 999 mls/hr 05/27/19 05:45 05/27/19 05:53 Sod Chlor 0.9% 1000ml Bag IV 05/27/19 06:45 999 mls/hr .Q1H1M JACKIE Administration Discontinued Medications Generic Name Dose Route Start Last Admin Trade Name Freq PRN Reason Stop Dose Admin Hydromorphone HCl 1 mg 05/27/19 06:33 05/27/19 06:40 Dilaudid 2mg/Ml Syringe IV 05/27/19 06:34 1 mg ONCE ONE Administration Ketorolac Tromethamine 30 mg 05/27/19 06:40 05/27/19 06:41 Toradol 30mg/Ml Vial IV 05/27/19 06:41 30 mg ONCE ONE Administration Morphine Sulfate 4 mg 05/27/19 05:36 05/27/19 05:53 Morphine 4mg/Ml Syringe IV 05/27/19 05:37 4 mg ONCE ONE Administration Ondansetron HCl 4 mg 05/27/19 05:35 05/27/19 05:53 Zofran 4mg/2ml Vial IV 05/27/19 05:36 4 mg ONCE ONE Administration ORDERS Category Date Time Status C-Reactive Protein Stat Lab 05/27/19 05:45 Results Comprehensive Metabolic Panel Stat Lab 05/27/19 05:45 Results PTT [Activated Partial Thrombo Time] Stat Lab 05/27/19 05:45 Received Urinalysis and Microscopic Stat Lab 05/27/19 05:35 Ordered Nausea/Vomiting/Diarrhea HPI - General Chief complaint: Nausea/Vomiting/Diarrhea Stated complaint: liver CA, vomiting, unable to eat, Pain Time Seen by Provider: 05/27/19 06:05 Mode of Arrival: Wheelchair Source of Information: Patient, Spouse, Medical Record Limitations: No Limitations Description of Symptoms (Recalled from ER Triage Doc. by RN): Pt c/o stomach pain and increased N/V. Pt has colon CA mets to liver. - History of Present Illness HPI Narrative: pt with known metastatic colon cancer with inc pain over the last few days - pt with vomiting and dec po intake over the last 2 days - pt with last chemo 3 days ago - MD complaint: nausea, vomiting, abdominal pain Onset (ago): day(s) Associated Abdominal Pain: Yes Location of pain: diffuse Severity: moderate Context: other (chemotherapy) - Related Data Home Medications Medication Instructions Recorded Confirmed oxycodone 5 mg capsule 5 mg PO Q4-6H PRN 09/19/18 05/27/19 Enoxaparin Sodium [Lovenox 150 mg SQ DAILY 10/03/18 05/27/19 150mg/mL syringe] Capecitabine [Xeloda] 500 mg PO BID 11/11/18 05/27/19 Dronabinol 5 mg PO DAILY 05/27/19 05/27/19 Loratadine 10 mg PO DAILY 05/27/19 05/27/19 Morphine Sulfate [Morphine Sulf IR 15 mg PO NEEDED PRN 05/27/19 05/27/19 15mg Tab] Ondansetron HCl [Ondansetron 4mg 4 mg PO NEEDED PRN 05/27/19 05/27/19 Tablet] Promethazine/Dextromethorphan 6.25 mg PO NEEDED PRN 05/27/19 05/27/19 [Promethazine-Dm Solution] Rivaroxaban [Xarelto 15mg tablet] 15 mg PO DAILY 05/27/19 05/27/19 Allergies Allergy/AdvReac Type Severity Reaction Status Date / Time No Known Allergies Allergy Verified 05/17/19 15:59 [facility] History - Hepatitis A Screen Drug use history?: No High risk sexual behaviors?: No History of sexually transmitted infection?: No Currently employed?: No Childcare worker?: No Do you have indoor plumbing?: Yes Do you have electricity?: Yes Attestation statement:: This patient has been screened for Hepatitis A risk factors. I have reviewed the patient's past medical history: Yes Medical History: Reports:: Cancer, Diabetes Mellitus Type 2, Hypertension Denies:: Diabetes Mellitus Type 1, Internal Pacemaker, Lung Disease, MRSA, Seizures Other Medical History: Denies: Blood Transfusion Reaction Laterality Cases: Left: Arthroscopy Shoulder Other Surgeries: Yes: Appendectomy, Colonoscopy, Colon Resection, Sinus Surgery, Other (port placement). No: Pacemaker Amputation: No Fractures: Yes Comment: Vasectomy, rhinoplasty, adrenalectomy, rotator cuff surgery, Port cath placement - Social History Smoking Status: Current every day smoker Tobacco Type: cigarettes # Packs/Day (cigarettes): 1 #Yrs smoked (if former smoker): 40 Alcohol Intake: never Alcohol Intake Frequency:: other Substance Use Type: denies use Occupational Status: employed Housing: house Household Members: spouse, children Family Hx:: Diabetes, Stroke, Hypertension, Cancer, Kidney Disease ROS Obtained: Yes All systems reviewed & no additional complaints - Constitutional Constitutional: Denies fever(s) - Eyes Eyes: Denies change in vision - ENT Ears, Nose, Mouth, and Throat: Denies sore throat - Cardiovascular Cardiovascular: Denies chest pain - Respiratory Respiratory: No cough - Gastrointestinal Gastrointestingal: Reports: as per HPI, abdominal pain, nausea, vomiting. Denies: diarrhea - Genitourinary Male Genitourinary: Denies hematuria - Musculoskeletal Musculoskeletal: Denies joint pain, Denies neck pain - Integumentary/Breasts Skin/Breast: Denies rash - Neurologic Neurologic: Denies confusion, Denies seizure-like activity Physical Exam - General General appearance: alert - Head Head exam: normocephalic - Eye Eye exam: Present: PERRL, EOMI. Absent: scleral icterus - ENT ENT exam: Present: mucous membranes dry - Neck Neck exam: Present: trachea midline - Respiratory Respiratory exam: Present: normal lung sounds bilaterally. Absent: respiratory distress - Cardiovascular Cardiovascular exam: Present: regular rate, systolic murmur - Abdominal Exam Abdominal exam: Present: soft, tenderness Abdominal tenderness: Present: diffuse, moderate - Extremities Exam Extremities exam: Present: pedal edema. Absent: calf tenderness - Neurological Exam Neurological exam: Present: alert, oriented X3, CN II-XII intact. Absent: motor sensory deficit - Psychiatric Psychiatric exam: Present: anxious - Skin Skin exam: Absent: rash
[2019-05-27 06:38] LABS: C-Reactive Protein 30.3 mg/dL (0.0-0.9)
[2019-05-27 06:45] LABS: Erythrocyte Sedimentation Rate 49 mm/hr (0-20)
[2019-05-27 07:09] LABS: Anion Gap 17.7 mEq/L (5-15)
--- NOTE | 2019-05-27 07:32 | Pharmacy Consult Notes ---
[facility] Pharmacy VTE Monitoring - Patient Demographics Admission date: 05/27/19 Report Date: 05/27/19 Time: 07:31 Allergies/Adverse Reactions: Patient Allergies No Known Allergies Allergy (Verified 05/17/19 15:59) Height: 1.83 m Weight: 81.647 kg Patient Problems: Current Active Problems Colon cancer (Acute) CHRIS (acute kidney injury) (Acute) Intractable pain (Acute) Hypercalcemia (Acute) Neutropenia (Acute) - VTE Risk Labs: VTE Related Lab Results Hgb 13.6 g/dL (14.1-18.0) L 05/27/19 05:30 Hct 41.0 % (42.0-52.0) L 05/27/19 05:30 Plt Count 435 K/mm3 (142-424) H 05/27/19 05:30 PT 11.8 seconds (9.4-11.8) 05/27/19 05:45 INR 1.14 (0.9-1.1) H 05/27/19 05:45 APTT 28.8 seconds (23.6-34.0) 05/27/19 05:45 BUN 98 mg/dL (7-18) H 05/27/19 05:45 Creatinine 3.26 mg/dL (0.70-1.30) H 05/27/19 05:45 Estimated Creat Clear 25 mL/min (50-200) 05/27/19 05:45 - Prophylaxis VTE Prophylaxis Ordered?: Yes Types of VTE Prophylaxis: Pharmacological Pharmacologic Type: Other (XARELTO) - VTE Diagnosis Confirmed Treatment or plan recommended: Continue Current Treatment
--- NOTE | 2019-05-27 07:39 | History & Physical Report ---
*Admission Date: 05/27/19 *Chief complaint: Nausea and vomiting *History of present illness: 69-year-old male with stage III colon cancer presented to the emergency department early this morning with persistent nausea and vomiting with last successful p.o. intake being 5 days ago. Patient feels weak. He denies fevers or chills. He denies diarrhea. Despite his poor p.o. intake he feels like his bowels are moving as they should. He has dealt with some constipation issues with use of his narcotic pain medicines for his cancer related pain. Currently he is taking morphine sulfate ER 20 mg twice daily with oxycodone 10 mg every 4 hours as needed for pain. Work-up in the emergency department revealed a low white blood cell count, signs of dehydration and labs supportive of acute kidney injury. Patient will be admitted for IV fluid hydration. [facility] History I have reviewed the patient's past medical history: Yes Medical History: Reports:: Cancer (Stage III colon cancer with metastases to the liver), Diabetes Mellitus Type 2, Hypertension Denies:: Diabetes Mellitus Type 1, Internal Pacemaker, Lung Disease, MRSA, Seizures *Have you ever received a pneumonia vaccine?: No *Have you received a flu vaccine this season?: No Other Medical History: Denies: Blood Transfusion Reaction Laterality Cases: Left: Arthroscopy Shoulder Other Surgeries: Yes: Appendectomy, Colonoscopy, Colon Resection, Sinus Surgery, Other (port placement). No: Pacemaker Amputation: No Fractures: Yes - *Social History Smoking Status: Current every day smoker Tobacco Type: cigarettes # Packs/Day (cigarettes): 1 #Yrs smoked (if former smoker): 40 Alcohol Intake: never Alcohol Intake Frequency:: other Substance Use Type: denies use *Occupational Status:: employed Housing: house Household Members: spouse, children *Travel in the last 8 weeks: None Family Hx:: Diabetes, Stroke, Hypertension, Cancer, Kidney Disease Review of Systems - Constitutional Reports anorexia, Reports body ache(s), Reports fatigue, Reports weakness, Reports weight loss, Denies chills, Denies daytime sleepiness, Denies excessive sweating, Denies fever(s) - *Cardiovascular Denies chest pain, Denies chest pain at rest - *Respiratory Denies change in phlegm color, Denies chest congestion, Denies cough - *Gastrointestinal Reports abdominal pain, Reports change in bowel habits, Denies belching, Denies bloating - *Neurologic Denies confusion, Denies seizure-like activity Meds Home Medications Medication Instructions Recorded Confirmed Type oxycodone 5 mg capsule 5 mg PO Q4-6H PRN 09/19/18 05/27/19 History Enoxaparin Sodium [Lovenox 150 mg SQ DAILY 10/03/18 05/27/19 History 150mg/mL syringe] Capecitabine [Xeloda] 500 mg PO BID 11/11/18 05/27/19 History Dronabinol 5 mg PO DAILY 05/27/19 05/27/19 History Loratadine 10 mg PO DAILY 05/27/19 05/27/19 History Morphine Sulfate [Morphine Sulf IR 15 mg PO NEEDED PRN 05/27/19 05/27/19 History 15mg Tab] Ondansetron HCl [Ondansetron 4mg 4 mg PO NEEDED PRN 05/27/19 05/27/19 History Tablet] Promethazine/Dextromethorphan 6.25 mg PO NEEDED PRN 05/27/19 05/27/19 History [Promethazine-Dm Solution] Rivaroxaban [Xarelto 15mg tablet] 15 mg PO DAILY 05/27/19 05/27/19 History Allergies Allergy/AdvReac Type Severity Reaction Status Date / Time No Known Allergies Allergy Verified 05/17/19 15:59 Exam Vital signs and Labs for Last 24 Hours: Temp Pulse Resp BP Pulse Ox 97.7 F 105 H 24 111/63 95 05/27/19 05:29 05/27/19 07:05 05/27/19 07:05 05/27/19 07:05 05/27/19 07:05 Laboratory Results - last 24 hr 05/27/19 05:30: WBC 1.9 L*, RBC 4.76, Hgb 13.6 L, Hct 41.0 L, MCV 86.2, MCH 28.5, MCHC 33.1, RDW 14.9, Plt Count 435 H, MPV 7.2 L, Neut % (Auto) 52.5, Lymph % (Auto) 42.5, [place] % (Auto) 2.6, Eos % (Auto) 2.0, Baso % (Auto) 0.5, Neut # (Auto) 1.0 L, Lymph # (Auto) 0.8, [place] # (Auto) 0.1, Eos # (Auto) 0.0, Baso # (Auto) 0.0, ESR 49 H 05/27/19 05:45: PT 11.8, INR 1.14 H 05/27/19 05:45: Sodium 127 L, Potassium 4.7, Chloride 82 L, Carbon Dioxide 32, Anion Gap 17.7 H, BUN 98 H, Creatinine 3.26 H, Estimated Creat Clear 25, Estimated GFR 19 L*, Est GFR ( Amer) 23 L, Glucose 190 H, Calcium 11.3 H, Total Bilirubin 1.4 H, AST 26, ALT 22, Alkaline Phosphatase 330 H, C-Reactive Protein 30.3 H, Total Protein 8.5 H, Albumin 2.8 L, Globulin 5.7 H, Albumin/Globulin Ratio 0.5 L 05/27/19 05:45: Ammonia 21 05/27/19 05:45: Lactate 2.0 05/27/19 05:45: APTT 28.8 I & O for Last 24 hours: Intake & Output 05/24/19 05/25/19 05/26/19 05/27/19 11:59 11:59 11:59 11:59 Weight 180 lb Narrative: Patient appears weak and tired. He awakens easily and is conversant. HEENT exam: No scleral icterus, extraocular movements are intact, pupils are reactive to light. External ears are normal. Oropharynx reveals tacky mucous membranes. Neck has noticed palpable lymphadenopathy. Lungs are clear to auscultation. Heart has a rapid rate and rhythm. Abdomen is soft with palpable metastatic lesion in the right upper quadrant. Bowel sounds are present. Patient moves all extremities. There is skin tenting over the wrists. Neurologically the patient has no gross deficits. Assessment and Plan (1) CHRIS (acute kidney injury) Current visit: Yes Status: Acute Category: Medical Code(s): N17.9 - Acute kidney failure, unspecified (2) History of DVT in adulthood Current visit: Yes Status: Acute Category: Medical Code(s): Z86.718 - Personal history of other venous thrombosis and embolism (3) Metastatic colon cancer to liver Current visit: Yes Status: Acute Category: Medical Code(s): C18.9 - Malignant neoplasm of colon, unspecified; C78.7 - Secondary malignant neoplasm of liver and intrahepatic bile duct (4) Hypercalcemia Current visit: Yes Status: Acute Category: Medical Code(s): E83.52 - Hypercalcemia (5) Intractable pain Current visit: Yes Status: Acute Category: Medical Code(s): R52 - Pain, unspecified (6) Neutropenia Current visit: Yes Status: Acute Qualifiers: Neutropenia type: secondary to cancer chemotherapy Qualified Code(s): D70.1 - Agranulocytosis secondary to cancer chemotherapy; T45.1X5A - Adverse effect of antineoplastic and immunosuppressive drugs, initial encounter Category: Medical Code(s): D70.9 - Neutropenia, unspecified (7) Dehydration Current visit: Yes Status: Acute Category: Medical Code(s): E86.0 - Dehydration - Assessment and plan all Dx Assessment and Plan for all problems:: 1. Admit for IV fluids and monitoring of electrolytes 2. Continue patient's home pain medication regimen 3. Continue twice daily Lovenox injections for patient's history of DVT 4. If patient is in house on oncology will be consulted. Patient is still wishful for a cure of his cancer although he understands that the current goal of chemotherapy is palliative. However he is seeking alternative treatment options and plans on beginning ingesting apricot seeds soon
--- NOTE | 2019-05-28 06:21 | Progress Note ---
Internal Medicine - PN: Subj *Date: 05/28/19 *Time: 06:19 Interval history: Patient reports feeling slightly better and is able to ingest "small bits" of solids and liquids. He reports a small bowel movement yesterday. He denies abdominal bloating. He does endorse significant heartburn Exam Vital signs and Labs for Last 24 Hours: Temp Pulse Resp BP Pulse Ox 97.9 F 111 H 18 138/70 96 05/28/19 04:00 05/28/19 04:00 05/28/19 04:00 05/28/19 04:00 05/28/19 04:00 Laboratory Results - last 24 hr 05/27/19 05:30: WBC 1.9 L*, RBC 4.76, Hgb 13.6 L, Hct 41.0 L, MCV 86.2, MCH 28.5, MCHC 33.1, RDW 14.9, Plt Count 435 H, MPV 7.2 L, Neut % (Auto) 52.5, Lymph % (Auto) 42.5, [place] % (Auto) 2.6, Eos % (Auto) 2.0, Baso % (Auto) 0.5, Neut # (Auto) 1.0 L, Lymph # (Auto) 0.8, [place] # (Auto) 0.1, Eos # (Auto) 0.0, Baso # (Auto) 0.0, ESR 49 H 05/27/19 05:45: PT 11.8, INR 1.14 H 05/27/19 05:45: Sodium 127 L, Potassium 4.7, Chloride 82 L, Carbon Dioxide 32, Anion Gap 17.7 H, BUN 98 H, Creatinine 3.26 H, Estimated Creat Clear 25, Estimated GFR 19 L*, Est GFR ( Amer) 23 L, Glucose 190 H, Calcium 11.3 H, Total Bilirubin 1.4 H, AST 26, ALT 22, Alkaline Phosphatase 330 H, C-Reactive Protein 30.3 H, Total Protein 8.5 H, Albumin 2.8 L, Globulin 5.7 H, Albumin/Globulin Ratio 0.5 L 05/27/19 05:45: Ammonia 21 05/27/19 05:45: Lactate 2.0 05/27/19 05:45: APTT 28.8 05/27/19 10:46: POC Glucose 162 H 05/27/19 17:05: POC Glucose 179 H 05/27/19 22:01: POC Glucose 181 H I & O for Last 24 hours: Intake & Output 05/25/19 05/26/19 05/27/19 05/28/19 11:59 11:59 11:59 11:59 Intake Total 3185 / 3185 Balance 3185 / 3185 Weight 171 lb 4 oz 175 lb 9 oz Narrative: Patient is sitting up in bed and asleep when I enter the room. He awakens easily. Hiccups began upon awakening. Lungs are clear. Heart rate is tachycardic. Abdomen is distended with mild epigastric tenderness. Palpable s oft tissue mass just to the right of the epigastrium bowel sounds are present Assessment and Plan (1) CHRIS (acute kidney injury) Current visit: Yes Status: Acute Category: Medical Code(s): N17.9 - Acute kidney failure, unspecified (2) History of DVT in adulthood Current visit: Yes Status: Acute Category: Medical Code(s): Z86.718 - Personal history of other venous thrombosis and embolism (3) Metastatic colon cancer to liver Current visit: Yes Status: Acute Category: Medical Code(s): C18.9 - Malignant neoplasm of colon, unspecified; C78.7 - Secondary malignant neoplasm of liver and intrahepatic bile duct (4) Hypercalcemia Current visit: Yes Status: Acute Category: Medical Code(s): E83.52 - H ypercalcemia (5) Intractable pain Current visit: Yes Status: Acute Category: Medical Code(s): R52 - Pain, unspecified (6) Neutropenia Current visit: Yes Status: Acute Qualifiers: Neutropenia type: secondary to cancer chemotherapy Qualified Code(s): D70.1 - Agranulocytosis secondary to cancer chemotherapy; T45.1X5A - Adverse effect of antineoplastic and immunosuppressive drugs, initial encounter Category: Medical Code(s): D70.9 - Neutropenia, unspecified (7) Dehydration Current visit: Yes Status: Acute Category: Medical Code(s): E86.0 - Dehydration - Assessment and plan all Dx Assessment and Plan for all problems:: 1. Continue IV fluids for acute kidney injury 2. Increase ambulation and continue patient's diet as he is 3. Plan for oncology consult tomorrow
[2019-05-28 06:36] LABS: Basophils % 0.2 % (0.1-2.0); Eosinophils % 1.3 % (0.1-12.0); Hematocrit 36.8 % (42.0-52.0); Hemoglobin 12.5 g/dL (14.1-18.0); Lymphocytes # 0.5 K/mm3 (0.7-4.5); Lymphocytes % 52.8 % (10-50); Mean Corpuscular HGB Conc 33.9 g/dL (31.8-35.4); Mean Platelet Volume 6.8 fl (7.4-10.4); Monocytes # 0.1 K/mm3 (0.1-1.0); Monocytes % 5.8 % (1.7-9.3); Neutrophils # 0.4 K/mm3 (1.8-7.8); Neutrophils % 39.7 % (37.0-80.0); Platelet Count 359 K/mm3 (142-424); Red Blood Count 4.14 M/mm3 (4.60-6.20); Red Cell Distribution Width 14.7 % (11.5-17.5)
[2019-05-28 07:58] LABS: Calcium 9.8 mg/dL (8.5-10.1)
[2019-05-28 09:35] LABS: Lymphocytes % 48 % (10-50); Monocytes % 8 % (2-9); Neutrophils % 36 % (42-76); Total Cells Counted 25
[2019-05-28 09:37] LABS: RBC Morphology Normal
--- NOTE | 2019-05-29 07:18 | Progress Note ---
Internal Medicine - PN: Subj *Date: 05/29/19 *Time: 07:16 Interval history: Patient states he is feeling a little better this morning. He has been able to tolerate small amounts of liquids without increase in nausea or abdominal pain. He is ambulating. Exam Vital signs and Labs for Last 24 Hours: Temp Pulse Resp BP Pulse Ox 98.4 F 117 H 18 103/55 L 98 05/29/19 04:00 05/29/19 04:00 05/29/19 04:00 05/29/19 04:00 05/29/19 04:00 Laboratory Results - last 24 hr 05/28/19 05:48: WBC 1.0 L* D, RBC 4.14 L, Hgb 12.5 L, Hct 36.8 L, MCV 89.0, MCH 30.1, MCHC 33.9, RDW 14.7, Plt Count 359, MPV 6.8 L, Neut % (Auto) 39.7, Lymph % (Auto) 52.8 H, [place] % (Auto) 5.8, Eos % (Auto) 1.3, Baso % (Auto) 0.2, Neut # (Auto) 0.4 L*, Lymph # (Auto) 0.5 L, [place] # (Auto) 0.1, Eos # (Auto) 0.0, Baso # (Auto) 0.0, Total Counted 25, Neutrophils % (Manual) 36 L, Lymphocytes % (Manual) 48, Atypical Lymphs % 8.0, Monocytes % (Manual) 8, Platelet Estimate Normal, RBC Morphology Normal 05/28/19 05:48: Sodium 129 L, Potassium 4.0, Chloride 90 L, Carbon Dioxide 33 H, Anion Gap 10.0, BUN 89 H, Creatinine 2.40 H D, Estimated Creat Clear 33, Estimated GFR 27 L, Est GFR ( Amer) 33 L D, Glucose 200 H, Calcium 9.8 D , Magnesium 2.2 05/28/19 11:53: POC Glucose 176 H 05/29/19 06:53: POC Glucose 144 H I & O for Last 24 hours: Intake & Output 05/26/19 05/27/19 05/28/19 05/29/19 11:59 11:59 11:59 11:59 Intake Total 3185 / 3185 1891 Balance 3185 / 3185 1892 / 1892 Weight 171 lb 4 oz 175 lb 9 oz 176 lb 2 oz Narrative: Patient physically looks better. Lungs remain clear. Heart has a regular rate and rhythm. Abdomen is soft and nontender except for the palpable mass in the epigastrium. Extremities have no edema Assessment and Plan (1) CHRIS (acute kidney injury) Current visit: Yes Status: Acute Category: Medical Code(s): N17.9 - Acute kidney failure, unspecified (2) History of DVT in adulthood Current visit: Yes Status: Acute Category: Medical Code(s): Z86.718 - Personal history of other venous thrombosis and embolism (3) Metastatic colon cancer to liver Current visit: Yes Status: Acute Category: Medical Code(s): C18.9 - Malignant neoplasm of colon, unspecified; C78.7 - Secondary malignant neoplasm of liver and intrahepatic bile duct (4) Hypercalcemia Current visit: Yes Status: Acute Category: Medical Code(s): E83.52 - Hypercalcemia (5) Intractable pain Current visit: Yes Status: Acute Category: Medical Code(s): R52 - Pain, unspecified (6) Neutropenia Current visit: Yes Status: Acute Qualifiers: Neutropenia type: secondary to cancer chemotherapy Qualified Code(s): D70.1 - Agranulocytosis secondary to cancer chemotherapy; T45.1X5A - Adverse effect of antineoplastic and immunosuppressive drugs, initial encounter Category: Medical Code(s): D70.9 - Neutropenia, unspecified (7) Dehydration Current visit: Yes Status: Acute Category: Medical Code(s): E86.0 - Dehydration - Assessment and plan all Dx Assessment and Plan for all problems:: 1. Await labs this morning. Creatinine is improving. Anticipate an additional day here in the hospital 2. Continue IV Protonix 3. Oncology consult today
[2019-05-29 07:19] LABS: Anion Gap 12.3 mEq/L (5-15); Calcium 8.9 mg/dL (8.5-10.1)
[2019-05-29 07:42] LABS: Basophils % 0.2 % (0.1-2.0); Eosinophils % 1.3 % (0.1-12.0); Hematocrit 33.8 % (42.0-52.0); Hemoglobin 10.8 g/dL (14.1-18.0); Lymphocytes # 0.6 K/mm3 (0.7-4.5); Lymphocytes % 43.8 % (10-50); Mean Corpuscular HGB Conc 31.9 g/dL (31.8-35.4); Mean Corpuscular Volume 89.5 fl (80-94); Mean Platelet Volume 6.9 fl (7.4-10.4); Monocytes # 0.1 K/mm3 (0.1-1.0); Monocytes % 7.7 % (1.7-9.3); Neutrophils # 0.6 K/mm3 (1.8-7.8); Platelet Count 307 K/mm3 (142-424); Red Blood Count 3.78 M/mm3 (4.60-6.20); Red Cell Distribution Width 14.8 % (11.5-17.5); White Blood Count 1.4 K/mm3 (4.8-10.8)
[2019-05-29 07:51] LABS: Albumin Level 2.1 gm/dL (3.4-5.0)
[2019-05-29 09:25] LABS: Bilirubin,Direct 0.5 mg/dL (0.0-0.2); Bilirubin,Indirect 0.5 mg/dL (0.0-0.9)
--- NOTE | 2019-05-29 12:42 | Consult Report ---
*Admission Date: 05/27/19 *History of present illness: Patient seen in follow up. He is on xeloda and oxaliplatin chemo for metastatic colon cancer. He is being treated for a DVT with Lovenox and is admitted following his last round of chemo with profound weakness. He has developed diarrhea. He was profoundly dehydrated wtih a BUN in the 80s on admission. His ROS is + for diarrhea that has started since being admitted a day or two ago. He was not febrile but was neutropenic on admission and this seems to be improving with time. PE: Chronically and acutely ill middle aged male. Ches : clear Cor: tachy with puls around 140. Rythm is regular abomen: soft but tender over an enlarged liver. BS ++ MS: swelling of LLE c/w previous dx of DVT A/P: metastatic colon cancer on chemo Poor PS due to disease burden Neutropenia from chemo Diarrhea presumed chemo related Rec: monitor temp. continue to follow labs aggressive fluids for dehydration symptomatic Rx of diarrhea. OP follow up with Dr. Joyner. He may not be a candidate for more aggressive therapy. [facility] History Medical History: Reports:: Cancer (Stage III colon cancer with metastases to the liver), Diabetes Mellitus Type 2, Hypertension Denies:: Diabetes Mellitus Type 1, Internal Pacemaker, Lung Disease, MRSA, S eizures *Have you ever received a pneumonia vaccine?: Yes *Have you received a flu vaccine this season?: Yes Other Medical History: Denies: Blood Transfusion Reaction Laterality Cases: Left: Arthroscopy Shoulder Other Surgeries: Yes: Appendectomy, Colonoscopy, Colon Resection, Sinus Surgery, Other (port placement). No: Pacemaker Amputation: No Fractures: Yes - *Social History Smoking Status: Current every day smoker Tobacco Type: cigarettes # Packs/Day (cigarettes): 1 #Yrs smoked (if former smoker): 40 Alcohol Intake: never Alcohol Intake Frequency:: other Substance Use Type: denies use *Occupational Status:: employed Housing: house Household Members: spouse, children *Travel in the last 8 weeks: None Family Hx:: Diabetes, Stroke, Hypertension, Cancer, Kidney Disease Review of Systems - *Neurologic Reports weakness, Denies confusion, Denies seizure-like activity Meds Home Medications Medication Instructions Recorded Confirmed Type oxycodone 5 mg capsule 10 mg PO Q4-6H PRN 09/19/18 05/27/19 History Enoxaparin Sodium [Lovenox 150 mg SQ DAILY 10/03/18 05/27/19 History 150mg/mL syringe] Capecitabine [Xeloda] 1,500 mg PO BID 11/11/18 05/27/19 History Dronabinol 5 mg PO BIDP PRN 05/27/19 05/27/19 History Loratadine 10 mg PO DAILY 05/27/19 05/27/19 History Morphine Sulfate [Morphine Sulfate 15 mg PO BID 05/27/19 05/27/19 History ER 15mg Tab] Ondansetron HCl [Ondansetron 4mg 4 mg PO NEEDED PRN 05/27/19 05/27/19 History Tablet] Allergies Allergy/AdvReac Type Severity Reaction Status Date / Time No Known Allergies Allergy Verified 05/17/19 15:59 Exam Vital signs and Labs for Last 24 Hours: Temp Pulse Resp BP Pulse Ox 98.7 F 69 18 105/63 L 93 L 05/29/19 08:00 05/29/19 08:00 05/29/19 08:00 05/29/19 08:00 05/29/19 08:00 Laboratory Results - last 24 hr 05/29/19 06:50: Total Bilirubin 1.0, Direct Bilirubin 0.5 H, Indirect Bilirubin 0.5, AST 19 D, ALT 20, Alkaline Phosphatase 221 H, Total Protein 6.0 L D, Alb umin 2.1 L 05/29/19 06:53: POC Glucose 144 H 05/29/19 06:55: WBC 1.4 L* D, RBC 3.78 L, Hgb 10.8 L, Hct 33.8 L, MCV 89.5, MCH 28.5, MCHC 31.9, RDW 14.8, Plt Count 307, MPV 6.9 L, Neut % (Auto) 47.0, Lymph % (Auto) 43.8, [place] % (Auto) 7.7, Eos % (Auto) 1.3, Baso % (Auto) 0.2, Neut # (Auto) 0.6 L*, Lymph # (Auto) 0.6 L, [place] # (Auto) 0.1, Eos # (Auto) 0.0, Baso # (Auto) 0.0 05/29/19 06:55: Sodium 133 L, Potassium 4.3, Chloride 96 L, Carbon Dioxide 29, Anion Gap 12.3, BUN 56 H D, Creatinine 1.57 H D, Estimated Creat Clear 51, Estimated GFR 44 L, Est GFR ( Amer) 53 L D, Glucose 161 H, Calcium 8.9 05/29/19 11:44: POC Glucose 156 H I & O for Last 24 hours: Intake & Output 05/26/19 05/27/19 05/28/19 05/29/19 23:59 23:59 23:59 23:59 Intake Total 1283 / 1583 3794 / 3794 964 / 964 Balance 1283 / 1583 3794 / 3794 964 / 964 Weight 171 lb 4 oz 175 lb 9.007 oz 176 lb 2 oz Internal Medicine - CN: Reslt - Labs CBC & Chem 7: 05/29/19 06:55 05/29/19 06:55 Labs: Short CBC 05/29/19 Range/Units 06:55 WBC 1.4 L* D (4.8-10.8) K/mm3 Hgb 10.8 L (14.1-18.0) g/dL Hct 33.8 L (42.0-52.0) % Plt Count 307 (142-424) K/mm3 BMP 05/29/19 06:55 Sodium 133 L Potassium 4.3 Chloride 96 L Carbon Dioxide 29 BUN 56 H D Creatinine 1.57 H D Glucose 161 H Calcium 8.9 Liver Function 05/29/19 Range/Units 06:50 Total Bilirubin 1.0 (0.2-1.0) mg/dL Direct Bilirubin 0.5 H (0.0-0.2) mg/dL AST 19 D (15-37) U/L ALT 20 (12-78) U/L Alkaline Phosphatase 221 H (46-116) U/L Albumin 2.1 L (3.4-5.0) gm/dL Assessment and Plan (1) CHRIS (acute kidney injury) Current visit: Yes Status: Acute Category: Medical Code(s): N17.9 - Acute kidney failure, unspecified (2) History of DVT in adulthood Current visit: Yes Status: Acute Category: Medical Code(s): Z86.718 - Personal history of other venous thrombosis and embolism (3) Metastatic colon cancer to liver Current visit: Yes Status: Acute Category: Medical Code(s): C18.9 - Malignant neoplasm of colon, unspecified; C78.7 - Secondary malignant neoplasm of liver and intrahepatic bile duct (4) Hypercalcemia Current visit: Yes Status: Acute Category: Medical Code(s): E83.52 - Hypercalcemia (5) Intractable pain Current visit: Yes Status: Acute Category: Medical Code(s): R52 - Pain, unspecified (6) Neutropenia Current visit: Yes Status: Acute Qualifiers: Neutropenia type: secondary to cancer chemotherapy Qualified Code(s): D70.1 - Agranulocytosis secondary to cancer chemotherapy; T45.1X5A - Adverse effect of antineoplastic and immunosuppressive drugs, initial encounter Category: Medical Code(s): D70.9 - Neutropenia, unspecified (7) Dehydration Current visit: Yes Status: Acute Category: Medical Code(s): E86.0 - Dehydration
[2019-05-30 06:26] LABS: Basophils % 0.2 % (0.1-2.0); Eosinophils % 1.2 % (0.1-12.0); Hematocrit 30.3 % (42.0-52.0); Hemoglobin 9.8 g/dL (14.1-18.0); Lymphocytes # 0.6 K/mm3 (0.7-4.5); Lymphocytes % 54.2 % (10-50); Mean Corpuscular HGB Conc 32.3 g/dL (31.8-35.4); Mean Corpuscular Volume 88.4 fl (80-94); Mean Platelet Volume 7.4 fl (7.4-10.4); Monocytes # 0.1 K/mm3 (0.1-1.0); Monocytes % 10.2 % (1.7-9.3); Neutrophils # 0.4 K/mm3 (1.8-7.8); Neutrophils % 34.2 % (37.0-80.0); Platelet Count 237 K/mm3 (142-424); Red Blood Count 3.42 M/mm3 (4.60-6.20); Red Cell Distribution Width 14.6 % (11.5-17.5); White Blood Count 1.1 K/mm3 (4.8-10.8)
[2019-05-30 06:32] LABS: Anion Gap 11.7 mEq/L (5-15)
--- NOTE | 2019-05-30 07:18 | Progress Note ---
Internal Medicine - PN: Subj *Date: 05/30/19 *Time: 07:16 Interval history: Patient reports feeling better this morning but has developed frequent watery stools that are uncontrollable. A stool panel was sent per protocol and is positive for vibrio cholera. Patient had a fever to 101.2 early this morning. He was unaware of his fever and denies chills. Exam Vital signs and Labs for Last 24 Hours: Temp Pulse Resp BP Pulse Ox 101.2 F H 79 21 106/53 L 94 L 05/30/19 04:00 05/30/19 04:00 05/30/19 04:00 05/30/19 04:00 05/30/19 04:00 Laboratory Results - last 24 hr 05/29/19 06:50: Total Bilirubin 1.0, Direct Bilirubin 0.5 H, Indirect Bilirubin 0.5, AST 19 D, ALT 20, Alkaline Phosphatase 221 H, Total Protein 6.0 L D, Albumin 2.1 L 05/29/19 06:55: WBC 1.4 L* D, RBC 3.78 L, Hgb 10.8 L, Hct 33.8 L, MCV 89.5, MCH 28.5, MCHC 31.9, RDW 14.8, Plt Count 307, MPV 6.9 L, Neut % (Auto) 47.0, Lymph % (Auto) 43.8, [place] % (Auto) 7.7, Eos % (Auto) 1.3, Baso % (Auto) 0.2, Neut # (Auto) 0.6 L*, Lymph # (Auto) 0.6 L, [place] # (Auto) 0.1, Eos # (Auto) 0.0, Baso # (Auto) 0.0 05/29/19 06:55: Sodium 133 L, Potassium 4.3, Chloride 96 L, Carbon Dioxide 29, Anion Gap 12.3, BUN 56 H D, Creatinine 1.57 H D, Estimated Creat Clear 51, Estimated GFR 44 L, Est GFR ( Amer) 53 L D, Glucose 161 H, Calcium 8.9 05/29/19 11:44: POC Glucose 156 H 05/29/19 16:45: POC Glucose 176 H 05/29/19 21:45: POC Glucose 194 H 05/29/19 22:15: Stl Aeromonas (PCR) Not detected, Stl C. cayetanensis PCR Not detected, Stool Rotavirus (PCR) Not detected, Stl Adenov F 40/41 PCR Not detected, Stool Astrovirus (PCR) Not detected, Stool Campylobacter PCR Not detected, Stl C.difficile Tox PCR Not detected, Stool Cryptosporidium PCR Not detected, Stl E.coli Shiga Tox PCR Not detected, Stool E coli O157 PCR Not detected, Stl Enterotoxigenic E PCR Not detected, Stool EPEC (PCR) Not detected, Stool EAEC (PCR) Not detected, Stl E. histolytica PCR Not detected, Stool Giardia Lamblia PCR Not detected, Stool Salmonella PCR Not detected, Stool Sapovirus (PCR) Not detected, Stl P. shigelloides PCR Not detected, Stl Shigella/EIEC PCR Not detected, St Y.enterocolitica PCR Not detected, Stool Vibrio (PCR) Detected A, Stl Vibrio cholerae PCR Not detected, Stl Norovirus GI/GII PCR Not detected 05/30/19 06:00: WBC 1.1 L*, RBC 3.42 L, Hgb 9.8 L, Hct 30.3 L, MCV 88.4, MCH 28.5, MCHC 32.3, RDW 14.6, Plt Count 237, MPV 7.4, Neut % (Auto) 34.2 L, Lymph % (Auto) 54.2 H, [place] % (Auto) 10.2 H, Eos % (Auto) 1.2, Baso % (Auto) 0.2, Neut # (Auto) 0.4 L*, Lymph # (Auto) 0.6 L, [place] # (Auto) 0.1, Eos # (Auto) 0.0, Baso # (Auto) 0.0 05/30/19 06:00: Sodium 135 L, Potassium 3.7, Chloride 101, Carbon Dioxide 26, Anion Gap 11.7, BUN 41 H D, Creatinine 1.61 H, Estimated Creat Clear 50, Estimated GFR 43 L, Est GFR ( Amer) 52 L, Glucose 127 H D, Calcium 8.0 L D I & O for Last 24 hours: Intake & Output 05/27/19 05/28/19 05/29/19 05/30/19 11:59 11:59 11:59 11:59 Intake Total 3185 / 3185 2856 / 2856 1192 / 1192 Balance 3185 / 3185 2856 / 2856 1192 / 1192 Weight 171 lb 4 oz 175 lb 9 oz 176 lb 2 oz 176 lb 5 oz Narrative: Patient is in no distress and actually looks quite comfortable compared to the early part of his admission. Lungs remain clear. Heart has a regular rate and rhythm. Abdomen is soft and nontender. Bowel sounds are present Assessment and Plan (1) CHRIS (acute kidney injury) Current visit: Yes Status: Acute Category: Medical Code(s): N17.9 - Acute kidney failure, unspecified (2) History of DVT in adulthood Current visit: Yes Status: Acute Category: Medical Code(s): Z86.718 - Personal history of other venous thrombosis and embolism (3) Metastatic colon cancer to liver Current visit: Yes Status: Acute Category: Medical Code(s): C18.9 - Malignant neoplasm of colon, unspecified; C78.7 - Secondary malignant neoplasm of liver and intrahepatic bile duct (4) Hypercalcemia Current visit: Yes Status: Acute Category: Medical Code(s): E83.52 - Hypercalcemia (5) Intractable pain Current visit: Yes Status: Acute Category: Medical Code(s): R52 - Pain, unspecified (6) Neutropenia Current visit: Yes Status: Acute Qualifiers: Neutropenia type: secondary to cancer chemotherapy Qualified Code(s): D70.1 - Agranulocytosis secondary to cancer chemotherapy; T45.1X5A - Adverse effect of antineoplastic and immunosuppressive drugs, initial encounter Category: Medical Code(s): D70.9 - Neutropenia, unspecified (7) Dehydration Current visit: Yes Status: Acute Category: Medical Code(s): E86.0 - Dehyd ration (8) 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 Patient be given oral dose of azithromycin 500 mg p.o. x1 for the vibrio 2. Blood cultures x2, IV Levaquin, monitoring for fever and repeat CBC in a.m.
[2019-05-30 08:31] LABS: Lymphocytes % 60 % (10-50); Monocytes % 12 % (2-9); Neutrophils % 28 % (42-76); RBC Morphology Normal; Total Cells Counted 25
--- NOTE | 2019-05-30 16:17 | Pharmacy Consult Notes ---
- Pharmacy Consult Date: 05/30/19 Time: 16:16 Referring provider: DR. CAMPBELL Reason for Consult:: VANCOMYCIN DOSING Allergies and ADEs:: Allergies Allergy/AdvReac Type Severity Reaction Status Date / Time No Known Allergies Allergy Verified 05/17/19 15:59 Home Medications:: Home Medications Medication Instructions Recorded Confirmed Type oxycodone 5 mg capsule 10 mg PO Q4-6H PRN 09/19/18 05/27/19 History Enoxaparin Sodium [Lovenox 150 mg SQ DAILY 10/03/18 05/27/19 History 150mg/mL syringe] Capecitabine [Xeloda] 1,500 mg PO BID 11/11/18 05/27/19 History Dronabinol 5 mg PO BIDP PRN 05/27/19 05/27/19 History Loratadine 10 mg PO DAILY 05/27/19 05/27/19 History Morphine Sulfate [Morphine Sulfate 15 mg PO BID 05/27/19 05/27/19 History ER 15mg Tab] Ondansetron HCl [Ondansetron 4mg 4 mg PO NEEDED PRN 05/27/19 05/27/19 History Tablet] Height: 1.83 m Weight: 79.974 kg Laboratory Results:: Laboratory Results - last 24 hr 05/29/19 16:45: POC Glucose 176 H 05/29/19 21:45: POC Glucose 194 H 05/29/19 22:15: Stl Aeromonas (PCR) Not detected, Stl C. cayetanensis PCR Not detected, Stool Rotavirus (PCR) Not detected, Stl Adenov F 40/41 PCR Not detected, Stool Astrovirus (PCR) Not detected, Stool Campylobacter PCR Not detected, Stl C.difficile Tox PCR Not detected, Stool Cryptosporidium PCR Not detected, Stl E.coli Shiga Tox PCR Not detected, Stool E coli O157 PCR Not detected, Stl Enterotoxigenic E PCR Not detected, Stool EPEC (PCR) Not detected, Stool EAEC (PCR) Not detected, Stl E. histolytica PCR Not detected, Stool Giardia Lamblia PCR Not detected, Stool Salmonella PCR Not detected, Stool Sapovirus (PCR) Not detected, Stl P. shigelloides PCR Not detected, Stl Shigella/EIEC PCR Not detected, St Y.enterocolitica PCR Not detected, Stool Vibrio (PCR) Detected A, Stl Vibrio cholerae PCR Not detected, Stl Norovirus GI/GII PCR Not detected 05/30/19 06:00: WBC 1.1 L*, RBC 3.42 L, Hgb 9.8 L, Hct 30.3 L, MCV 88.4, MCH 28.5, MCHC 32.3, RDW 14.6, Plt Count 237, MPV 7.4, Neut % (Auto) 34.2 L, Lymph % (Auto) 54.2 H, [place] % (Auto) 10.2 H, Eos % (Auto) 1.2, Baso % (Auto) 0.2, Neut # (Auto) 0.4 L*, Lymph # (Auto) 0.6 L, [place] # (Auto) 0.1, Eos # (Auto) 0.0, Baso # (Auto) 0.0, Total Counted 25, Neutrophils % (Manual) 28 L, Lymphocytes % (Manual) 60 H, Monocytes % (Manual) 12 H, Platelet Estimate Normal, RBC Morphology Normal 05/30/19 06:00: Sodium 135 L, Potassium 3.7, Chloride 101, Carbon Dioxide 26, Anion Gap 11.7, BUN 41 H D, Creatinine 1.61 H, Estimated Creat Clear 50, Estimated GFR 43 L, Est GFR ( Amer) 52 L, Glucose 127 H D, Calcium 8.0 L D Medical History: Reports:: Cancer (Stage III colon cancer with metastases to the liver), Diabetes Mellitus Type 2, Hypertension Denies:: Diabetes Mellitus Type 1, Internal Pacemaker, Lung Disease, MRSA, Seizures Assessment and Plan (1) CHRIS (acute kidney injury) Current visit: Yes Status: Acute Category: Medical Code(s): N17.9 - Acute kidney failure, unspecified (2) History of DVT in adulthood Current visit: Yes Status: Acute Category: Medical Code(s): Z86.718 - Personal history of other venous thrombosis and embolism (3) Metastatic colon cancer to liver Current visit: Yes Status: Acute Category: Medical Code(s): C18.9 - Malignant neoplasm of colon, unspecified; C78.7 - Secondary malignant neoplasm of liver and intrahepatic bile duct (4) Hypercalcemia Current visit: Yes Status: Acute Category: Medical Code(s): E83.52 - Hypercalcemia (5) Intractable pain Current visit: Yes Status: Acute Category: Medical Code(s): R52 - Pain, unspecified (6) Neutropenia Current visit: Yes Status: Acute Qualifiers: Neutropenia type: secondary to cancer chemotherapy Qualified Code(s): D70.1 - Agranulocytosis secondary to cancer chemotherapy; T45.1X5A - Adverse effect of antineoplastic and immunosuppressive drugs, initial encounter Category: Medical Code(s): D70.9 - Neutropenia, unspecified (7) Dehydration Current visit: Yes Status: Acute Category: Medical Code(s): E86.0 - Dehydration (8) 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 PHARMACY WILL FOLLOW DAILY AND ADJUST APPROPRIATE.
[2019-05-31 06:19] LABS: Anion Gap 12.7 mEq/L (5-15); Calcium 7.6 mg/dL (8.5-10.1)
[2019-05-31 06:21] LABS: Basophils % 0.1 % (0.1-2.0); Eosinophils % 1.5 % (0.1-12.0); Hematocrit 30.7 % (42.0-52.0); Hemoglobin 9.9 g/dL (14.1-18.0); Lymphocytes # 0.8 K/mm3 (0.7-4.5); Lymphocytes % 45.4 % (10-50); Mean Corpuscular HGB Conc 32.2 g/dL (31.8-35.4); Mean Corpuscular Volume 89.1 fl (80-94); Mean Platelet Volume 7.2 fl (7.4-10.4); Monocytes # 0.2 K/mm3 (0.1-1.0); Neutrophils # 0.7 K/mm3 (1.8-7.8); Neutrophils % 40.8 % (37.0-80.0); Platelet Count 269 K/mm3 (142-424); Red Blood Count 3.44 M/mm3 (4.60-6.20); Red Cell Distribution Width 14.8 % (11.5-17.5); White Blood Count 1.7 K/mm3 (4.8-10.8)
--- NOTE | 2019-05-31 07:27 | Progress Note ---
Internal Medicine - PN: Subj *Date: 05/31/19 *Time: 07:26 Interval history: Patient reports overall feeling better this morning. Frequency and volume of bowel movements have decreased. Patient did spike a fever yesterday afternoon of 102.8. Patient denies cough. There is been no increase in his abdominal pain. Exam Vital signs and Labs for Last 24 Hours: Temp Pulse Resp BP Pulse Ox 99.0 F 104 H 18 104/46 L 99 05/31/19 04:00 05/31/19 04:00 05/31/19 04:00 05/31/19 04:00 05/31/19 04:00 Laboratory Results - last 24 hr 05/30/19 06:00: Total Counted 25, Neutrophils % (Manual) 28 L, Lymphocytes % (Manual) 60 H, Monocytes % (Manual) 12 H, Platelet Estimate Normal, RBC Morphology Normal 05/30/19 16:52: POC Glucose 137 H 05/30/19 20:52: POC Glucose 152 H 05/31/19 05:35: WBC 1.7 L* D, RBC 3.44 L, Hgb 9.9 L, Hct 30.7 L, MCV 89.1, MCH 28.7, MCHC 32.2, RDW 14.8, Plt Count 269, MPV 7.2 L, Neut % (Auto) 40.8, Lymph % (Auto) 45.4, [place] % (Auto) 12.0 H, Eos % (Auto) 1.5, Baso % (Auto) 0.1, Neut # (Auto) 0.7 L*, Lymph # (Auto) 0.8, [place] # (Auto) 0.2, Eos # (Auto) 0.0, Baso # (Auto) 0.0 05/31/19 05:35: Sodium 134 L, Potassium 3.7, Chloride 102, Carbon Dioxide 23, Anion Gap 12.7, BUN 29 H D, Creatinine 1.57 H, Estimated Creat Clear 51, Estimated GFR 44 L, Est GFR ( Amer) 53 L, Glucose 125 H, Calcium 7.6 L 05/31/19 05:35: POC Glucose 127 H I & O for Last 24 hours: Intake & Output 05/28/19 05/29/19 05/30/19 05/31/19 11:59 11:59 11:59 11:59 Intake Total 3185 / 3185 2856 / 2856 1342 / 1342 2423 / 2423 Balance 3185 / 3185 2856 / 2856 1342 / 1342 2423 / 2423 Weight 175 lb 9 oz 176 lb 2 oz 176 lb 5 oz 178 lb 1 oz Narrative: Patient looks comfortable. Lungs remain clear. Heart has a regular rate and rhythm. Abdomen is soft with right upper quadrant tenderness to palpation with palpable soft tissue mass and mild left lower quadrant tenderness to palpation Assessment and Plan (1) CHRIS (acute kidney injury) Current visit: Yes Status: Acute Category: Medical Code(s): N17.9 - Acute kidney failure, unspecified (2) History of DVT in adulthood Current visit: Yes Status: Acute Category: Medical Code(s): Z86.718 - Personal history of other venous thrombosis and embolism (3) Metastatic colon cancer to liver Current visit: Yes Status: Acute Category: Medical Code(s): C18.9 - Malignant neoplasm of colon, unspecified; C78.7 - Secondary malignant neoplasm of liver and intrahepatic bile duct (4) Hypercalcemia Current visit: Yes Status: Acute Category: Medical Code(s): E83.52 - Hypercalcemia (5) Intractable pain Current visit: Yes Status: Acute Category: Medical Code(s): R52 - Pain, unspecified (6) Neutropenia Current visit: Yes Status: Acute Qualifiers: Neutropenia type: secondary to cancer chemotherapy Qualified Code(s): D70.1 - Agranulocytosis secondary to cancer chemotherapy; T45.1X5A - Adverse effect of antineoplastic and immunosuppressive drugs, initial encounter Category: Medical Code(s): D70.9 - Neutropenia, unspecified (7) Dehydration Current visit: Yes Status: Acute Category: Medical Code(s): E86.0 - Dehydration (8) 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 Continue broad-spectrum antibiotic coverage until blood cultures are back. Patient will be given additional dose of azithromycin today for the vibrio infection 2. Decrease IV fluids 3. Renal function has returned to baseline
[2019-06-01 06:41] LABS: Basophils % 0.2 % (0.1-2.0); Eosinophils % 1.4 % (0.1-12.0); Hematocrit 32.2 % (42.0-52.0); Hemoglobin 10.3 g/dL (14.1-18.0); Lymphocytes # 1.3 K/mm3 (0.7-4.5); Mean Corpuscular HGB Conc 32.1 g/dL (31.8-35.4); Mean Corpuscular Volume 89.4 fl (80-94); Mean Platelet Volume 7.4 fl (7.4-10.4); Monocytes # 0.3 K/mm3 (0.1-1.0); Monocytes % 11.1 % (1.7-9.3); Neutrophils # 0.9 K/mm3 (1.8-7.8); Neutrophils % 35.3 % (37.0-80.0); Platelet Count 317 K/mm3 (142-424); Red Cell Distribution Width 14.9 % (11.5-17.5); White Blood Count 2.5 K/mm3 (4.8-10.8)
[2019-06-01 06:50] LABS: Anion Gap 14.7 mEq/L (5-15); Calcium 7.6 mg/dL (8.5-10.1)
[2019-06-01 07:00] LABS: Eosinophils % 1 % (0-3); Lymphocytes % 36 % (10-50); Monocytes % 2 % (2-9); Neutrophils % 54 % (42-76); Rouleaux 3+; Total Cells Counted 100
--- NOTE | 2019-06-01 07:01 | Discharge Summary ---
General - General Admission date:: 05/27/19 Discharge date: 06/01/19 HPI HPI: 69-year-old male with stage III colon cancer presented to the emergency department early this morning with persistent nausea and vomiting with last successful p.o. intake being 5 days ago. Patient feels weak. He denies fevers or chills. He denies diarrhea. Despite his poor p.o. intake he feels like his bowels are moving as they should. He has dealt with some constipation issues with use of his narcotic pain medicines for his cancer related pain. Currently he is taking morphine sulfate ER 20 mg twice daily with oxycodone 10 mg every 4 hours as needed for pain. Work-up in the emergency department revealed a low white blood cell count, signs of dehydration and labs supportive of acute kidney injury. Patient will be admitted for IV fluid hydration. Hospital Course Hospital Course: Patient was admitted for IV fluids and pain control. IV fluids corrected his acute kidney injury and over 72 hours patient's creatinine returned to baseline of 1.5. As patient became better hydrated his ability to tolerate oral intake improved. While he never ate large meals he was gradually able to tolerate small amounts of liquids and solids. Patient had reported diarrhea prior to admission but due to his level of dehydration had very little diarrhea until about day 3 of the hospitalization. Patient at that point developed diffuse watery diarrhea. Stool PCR testing was positive for vibrio. Patient was treated with oral azithromycin for the vibrio. On day 3 of hospitalization patient developed a significant fever. He was already under neutropenic precautions. Blood cultures were drawn. Patient did not have any respiratory symptoms to suggest pneumonia. He was started on empiric antibiotics of Levaquin and vancomycin. After 24 hours patient's fevers resolved. I believe this was primarily due to treatment of the vibrio. Blood cultures showed no growth after 48 hours. Patient has known malignancy with history of colon cancer that has now metastasized to the liver. Patient has been following locally with Dr. Joyner and was seen by Dr. Rich of the oncology service while hospitalized. No changes were made to the patient's regimen. Patient had planned for consultation with [facility] prior to hospitalization. That appointment is scheduled for June 03. Patient was discharged from the hospital on June 01 and will attend his appointment at the [facility]. Objective Vital signs: Temp Pulse Resp BP Pulse Ox 98.3 F 95 H 18 94/50 L 98 06/01/19 04:00 06/01/19 04:00 06/01/19 04:00 06/01/19 04:00 06/01/19 04:00 Narrative: Patient appears older than his stated age. Oropharynx is moist. Lungs are clear. Heart has a regular rate and rhythm. Abdomen is soft and distended with 2 palpable masses subcutaneously that are consistent with metastatic disease. Patient has active range of motion in all extremities and has no edema of the lower extremities. He has diminished sensation of the feet due to neuropathy Results Labs on day of discharge: Labs from last 24 hours 06/01/19 06/01/19 05/31/19 06:24 06:21 20:47 WBC 2.5 L D RBC 3.60 L Hgb 10.3 L Hct 32.2 L MCV 89.4 MCH 28.7 MCHC 32.1 RDW 14.9 Plt Count 317 MPV 7.4 Neut % (Auto) 35.3 L Lymph % (Auto) 52.0 H [place] % (Auto) 11.1 H Eos % (Auto) 1.4 Baso % (Auto) 0.2 Neut # (Auto) 0.9 L* Lymph # (Auto) 1.3 Major # (Auto) 0.3 Eos # (Auto) 0.0 Baso # (Auto) 0.0 POC Glucose 116 H 129 H 05/31/19 10:49 WBC RBC Hgb Hct MCV MCH MCHC RDW Plt Count MPV Neut % (Auto) Lymph % (Auto) [place] % (Auto) Eos % (Auto) Baso % (Auto) Neut # (Auto) Lymph # (Auto) Major # (Auto) Eos # (Auto) Baso # (Auto) POC Glucose 170 H DS: Diagnosis - Discharge Diagnosis (1) CHRIS (acute kidney injury) Status: Acute (2) History of DVT in adulthood Status: Acute (3) Metastatic colon cancer to liver Status: Acute (4) Hypercalcemia Status: Acute (5) Intractable pain Status: Acute (6) Neutropenia Status: Acute (7) Dehydration Status: Acute (8) 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 Status: Acute Discharge Plan - Patient Discharge Instructions ACTIVITY: Continue current activity DIET: continue same diet Patient Instructions: DI for Dehydration -- Adult, Acute Renal Failure, DI for Colorectal Cancer, DI for Neutropenia - Follow up Plan Disposition: Home, Self-Group Home Medications: Home Medications Medication Instructions Recorded Confirmed Type oxycodone 5 mg capsule 10 mg PO Q4-6H PRN 09/19/18 05/27/19 History Enoxaparin Sodium [Lovenox 150 mg SQ DAILY 10/03/18 05/27/19 History 150mg/mL syringe] Capecitabine [Xeloda] 1,500 mg PO BID 11/11/18 05/27/19 History Dronabinol 5 mg PO BIDP PRN 05/27/19 05/27/19 History Loratadine 10 mg PO DAILY 05/27/19 05/27/19 History Morphine Sulfate [Morphine Sulfate 15 mg PO BID 05/27/19 05/27/19 History ER 15mg Tab] Ondansetron HCl [Ondansetron 4mg 4 mg PO NEEDED PRN 05/27/19 05/27/19 History Tablet] Prescriptions/Medication Reconciliation: Continued oxycodone 5 mg capsule 10 mg PO Q4-6H PRN PRN Reason: pain Enoxaparin Sodium [Lovenox 150mg/mL syringe] 150 mg SQ DAILY Capecitabine [Xeloda] 1,500 mg PO BID Ondansetron HCl [Ondansetron 4mg Tablet] 4 mg PO NEEDED PRN PRN Reason: Nausea Loratadine 10 mg PO DAILY Dronabinol 5 mg PO BIDP PRN PRN Reason: NAUSEA/APPETITE Morphine Sulfate [Morphine Sulfate ER 15mg Tab] 15 mg PO BID - Problem Reconciliation Problems Reviewed?: Yes
== END 2019-06-01 09:10 | disposition home or self-care (01) | DRG 683 ==
LOC: 2ND 05:19 → ER 05:19 → 2ND 08:00
PROVIDERS: ADMIT Family Medicine; ATTEND Family Medicine
CPT/HCPCS: 36415; 80048; 80053; 80076; 82140; 82962; 83605; 83735; 85007; 85025; 85610; 85651; 85730; 86140; 87040; 87506; 96365; 96375; 96376; 99284; J1956; J2405; J3370

== ENCOUNTER 2019-06-06 12:20 | Outpatient (CLI) | payer MEDICARE, OTHER, SELFPAY ==
[2019-06-06] VITALS (8 sets, daily range): BP systolic 85–109; BP diastolic 40–78; PULSE 68–95; RESP 16–20; TEMP 36.1–37.2; O2SAT 95–100; BMI 23.0
[2019-06-06 14:56] LABS: Basophils % 0.2 % (0.1-2.0); Eosinophils # 0.1 K/mm3 (0.0-0.4); Eosinophils % 1.3 % (0.1-12.0); Hematocrit 29.9 % (42.0-52.0); Hemoglobin 9.4 g/dL (14.1-18.0); Lymphocytes # 1.1 K/mm3 (0.7-4.5); Lymphocytes % 28.8 % (10-50); Mean Corpuscular HGB Conc 31.6 g/dL (31.8-35.4); Mean Corpuscular Hemoglobin 27.7 pg (27.0-31.2); Mean Corpuscular Volume 87.8 fl (80-94); Mean Platelet Volume 7.2 fl (7.4-10.4); Monocytes # 0.4 K/mm3 (0.1-1.0); Monocytes % 10.1 % (1.7-9.3); Neutrophils # 2.2 K/mm3 (1.8-7.8); Neutrophils % 59.6 % (37.0-80.0); Platelet Count 393 K/mm3 (142-424); Red Cell Distribution Width 15.1 % (11.5-17.5); White Blood Count 3.7 K/mm3 (4.8-10.8)
[2019-06-06 15:07] LABS: Alanine Aminotransferase 20 U/L (12-78); Albumin Level 1.7 gm/dL (3.4-5.0); Albumin/Globulin Ratio 0.5 (1.1-1.8); Alkaline Phosphatase 172 U/L (46-116); Anion Gap 17.8 mEq/L (5-15); Aspartate Amino Transferase 21 U/L (15-37); Bilirubin,Total 0.7 mg/dL (0.2-1.0); Blood Urea Nitrogen 57 mg/dL (7-18); Calcium 7.6 mg/dL (8.5-10.1); Carbon Dioxide 19 mmol/L (21.0-32.0); Chloride 103 mmol/L (98-107); Creatinine Clearance Estimated 33 mL/min (50-200); Creatinine,Serum 2.34 mg/dL (0.70-1.30); Estimated Glomerular Filt Rate 28 ml/min (>60); GFR (African American) 34 ML/MIN (>60); Globulin 3.5 gm/dl (1.3-3.2); Glucose 104 mg/dL (74-106); Sodium 137 mmol/L (136-145); Total Protein,Serum 5.2 gm/dL (6.4-8.2)
[2019-06-06 15:11] LABS: Potassium 2.8 mmoL/L (3.5-5.1)
== END 2019-06-06 16:45 | disposition home or self-care (01) ==
LOC: INF 12:22
PROVIDERS: PCP Family Medicine; Visit Provider Nurse Practitioner Family
DX: C18.9 Malignant neoplasm of colon, unspecified (principal); E86.0 Dehydration
CPT/HCPCS: 80053; 85025; 96360; 96361; 96365; 96366; 96367; J1642

== ENCOUNTER → 2019-06-07 12:33 | Outpatient (CLI) | payer MEDICARE, OTHER, SELFPAY ==
[2019-06-07 12:48] LABS: Eosinophils # 0.1 K/mm3 (0.0-0.4); Lymphocytes # 1.7 K/mm3 (0.7-4.5); Mean Corpuscular Volume 88.9 fl (80-94); Mean Platelet Volume 7.3 fl (7.4-10.4); Monocytes # 0.4 K/mm3 (0.1-1.0); Red Cell Distribution Width 15.2 % (11.5-17.5); White Blood Count 5.1 K/mm3 (4.8-10.8)
[2019-06-07 13:20] LABS: Basophils % 0.6 % (0.1-2.0); Hematocrit 35.5 % (42.0-52.0); Lymphocytes % 33.7 % (10-50); Mean Corpuscular HGB Conc 32.8 g/dL (31.8-35.4); Mean Corpuscular Hemoglobin 29.2 pg (27.0-31.2); Monocytes % 7.9 % (1.7-9.3); Neutrophils # 2.9 K/mm3 (1.8-7.8); Neutrophils % 56.8 % (37.0-80.0); Platelet Count 467 K/mm3 (142-424); Red Blood Count 3.99 M/mm3 (4.60-6.20)
[2019-06-07 13:21] LABS: Hemoglobin 11.6 g/dL (14.1-18.0)
[2019-06-07 13:37] LABS: Alanine Aminotransferase 25 U/L (12-78); Albumin Level 2.2 gm/dL (3.4-5.0); Albumin/Globulin Ratio 0.6 (1.1-1.8); Alkaline Phosphatase 235 U/L (46-116); Anion Gap 18.2 mEq/L (5-15); Aspartate Amino Transferase 22 U/L (15-37); Bilirubin,Total 0.7 mg/dL (0.2-1.0); Blood Urea Nitrogen 57 mg/dL (7-18); Calcium 8.3 mg/dL (8.5-10.1); Carbon Dioxide 21 mmol/L (21.0-32.0); Chloride 102 mmol/L (98-107); Creatinine,Serum 2.16 mg/dL (0.70-1.30); Estimated Glomerular Filt Rate 31 ml/min (>60); GFR (African American) 37 ML/MIN (>60); Globulin 3.9 gm/dl (1.3-3.2); Glucose 134 mg/dL (74-106); Potassium 4.2 mmoL/L (3.5-5.1); Sodium 137 mmol/L (136-145); Total Protein,Serum 6.1 gm/dL (6.4-8.2)
[2019-06-07 20:59] LABS: Adenovirus F 40/41, stool Not Detected (NotDetected); Astrovirus Not Detected (NotDetected); Campylobacter Not Detected (NotDetected); Clostridium Difficile A/B, PCR Not Detected (NotDetected); Cryptosporidium Not Detected (NotDetected); Cyclospora Cayetanesis Not Detected (NotDetected); Entamoeba histolytica Not Detected (NotDetected); Enteroaggregative E coli Not Detected (NotDetected); Enteropathogenic E coli Not Detected (NotDetected); Enterotoxigenic E coli Not Detected (NotDetected); Giardia lamblia Not Detected (NotDetected); Norovirus Not Detected (NotDetected); Plesimonas Shigalloides, PCR Not Detected (NotDetected); Rotavirus A Not Detected (NotDetected); Salmonella, PCR Not Detected (NotDetected); Sapovirus Not Detected (NotDetected); Shiga-like toxin E coli Not Detected (NotDetected); Shigella Enterovasive E coli Not Detected (NotDetected); Vibrio Cholerae Not Detected (NotDetected); Vibrio, PCR Not Detected (NotDetected); Yersinia Entercolitica, PCR Not Detected (NotDetected)
== END ==
PROVIDERS: Visit Provider Nurse Practitioner Family
DX: C18.9 Malignant neoplasm of colon, unspecified (principal); C78.7 Secondary malignant neoplasm of liver and intrahepatic bile duct
CPT/HCPCS: 80053; 85025; 87506

== ENCOUNTER → 2019-06-07 20:45 | Outpatient (CLI) | payer MEDICARE, OTHER, SELFPAY | PROVIDERS: PCP Nurse Practitioner Family; Visit Provider Nurse Practitioner Family | DX: C18.9 Malignant neoplasm of colon, unspecified (principal); C78.7 Secondary malignant neoplasm of liver and intrahepatic bile duct ==

== ENCOUNTER 2019-06-11 20:21 | Observation (INO) ==
[2019-06-11 20:53] LABS: Basophils % 0.4 % (0.1-2.0); Eosinophils % 0.5 % (0.1-12.0); Hematocrit 34.8 % (42.0-52.0); Hemoglobin 11.4 g/dL (14.1-18.0); Lymphocytes # 2.4 K/mm3 (0.7-4.5); Lymphocytes % 30.3 % (10-50); Mean Corpuscular HGB Conc 32.8 g/dL (31.8-35.4); Mean Corpuscular Volume 85.2 fl (80-94); Mean Platelet Volume 6.9 fl (7.4-10.4); Monocytes # 0.5 K/mm3 (0.1-1.0); Monocytes % 6.7 % (1.7-9.3); Platelet Count 370 K/mm3 (142-424); Red Blood Count 4.09 M/mm3 (4.60-6.20); Red Cell Distribution Width 15.7 % (11.5-17.5)
[2019-06-11 21:06] LABS: Alanine Aminotransferase 18 U/L (12-78); Alkaline Phosphatase 266 U/L (46-116); Amylase 23 U/L (25-115); Anion Gap 18.3 mEq/L (5-15); Aspartate Amino Transferase 27 U/L (15-37); Bilirubin,Direct 0.3 mg/dL (0.0-0.2); Bilirubin,Indirect 0.6 mg/dL (0.0-0.9); Bilirubin,Total 0.9 mg/dL (0.2-1.0); Calcium 8.3 mg/dL (8.5-10.1); Carbon Dioxide 22 mmol/L (21.0-32.0); Chloride 97 mmol/L (98-107); Glucose 114 mg/dL (74-106); Sodium 134 mmol/L (136-145); Total Protein,Serum 6.2 gm/dL (6.4-8.2)
[2019-06-11 21:12] LABS: Blood Urea Nitrogen 77 mg/dL (7-18); C-Reactive Protein 19.1 mg/dL (0.0-0.9)
--- NOTE | 2019-06-11 21:27 | Emergency Department Note ---
ED Disposition Clinical Impression: Enterocolitis, Metastatic colon cancer to liver, CHRIS (acute kidney injury), Cholecystitis, LBBB (left bundle branch block) Disposition: Admitted as Observation Condition on Discharge: Serious - Critical Care Critical Care Time: No Attestation: On 06/11/19, the high probability of a clinically significant, sudden or life threatening deterioration of the following system(s) required my full and direct attention, intervention and personal management. The time I documented below is in addition to time spent performing reported procedures but includes the following listed in this critical care notation. Medical Decision Making - Medical Records Medical records reviewed: Yes: I reviewed the patient's medical records. - [facility]yman Inquiry Pt receiving controlled substance: No Vital Signs: 06/11/19 20:23 06/11/19 21:07 06/11/19 22:53 Temperature 97.5 F L Temperature Source Oral Pulse Rate [Right] 110 H 102 H 100 H Respiratory Rate 22 18 Blood Pressure [Right Arm] 114/69 118/60 124/53 L Blood Pressure Mean [Right Arm] 84 79 76 Blood Pressure Source [Right Arm] Automatic Cuff Automatic Cuff Automatic Cuff Blood Pressure Position [Right Arm] Supine Supine Supine 02 Sat by Pulse Oximetry 99 96 96 Oxygen Delivery Method Room Air Room Air - Lab Data Lab results reviewed: Yes: I reviewed the patient's lab results. Lab Results 06/11/19 20:20: WBC 8.0, RBC 4.09 L, Hgb 11.4 L, Hct 34.8 L, MCV 85.2, MCH 27.9, MCHC 32.8, RDW 15.7, Plt Count 370, MPV 6.9 L, Neut % (Auto) 62.0, Lymph % (Auto) 30.3, [place] % (Auto) 6.7, Eos % (Auto) 0.5, Baso % (Auto) 0.4, Neut # (Auto) 5.0, Lymph # (Auto) 2.4, [place] # (Auto) 0.5, Eos # (Auto) 0.0, Baso # (Auto) 0.0, ESR 132 H 06/11/19 20:20: Sodium 134 L, Potassium 3.3 L, Chloride 97 L, Carbon Dioxide 22, Anion Gap 18.3 H, BUN 77 H, Creatinine 2.54 H, Estimated Creat Clear 30, Estimated GFR 25 L, Est GFR ( Amer) 31 L, Glucose 114 H, Calcium 8.3 L, Total Bilirubin 0.9, Direct Bilirubin 0.3 H, Indirect Bilirubin 0.6, AST 27, ALT 18, Alkaline Phosphatase 266 H, Troponin I < 0.02, C-Reactive Protein 19.1 H, Total Protein 6.2 L, Albumin 2.0 L, Amylase 23 L, Lipase 142 06/11/19 20:20: Lactate 1.5 06/11/19 22:05: Ammonia 28 Result diagrams: 06/11/19 20:20 06/11/19 20:20 Orders (Tests/Meds): ED MEDICATIONS Generic Name Dose Route Start Last Admin Trade Name Freq PRN Reason Stop Dose Admin Sodium Chloride 8 ml 06/11/19 20:36 06/11/19 20:42 Sodium Chloride 0.9% 10ml Vial IV 07/11/19 20:35 8 ml NEEDED PRN Administration dilute pepcid Sodium Chloride 10 ml 06/11/19 20:36 06/11/19 20:42 Saline Flush 10ml Syringe IV 07/11/19 20:35 10 ml NEEDED PRN Administration Maintain IV Site Discontinued Medications Generic Name Dose Route Start Last Admin Trade Name Freq PRN Reason Stop Dose Admin Aspirin 324 mg 06/11/19 20:38 06/11/19 20:42 Aspirin 81mg Chewable Tablet PO 06/11/19 20:39 324 mg ONCE ONE Administration Famotidine 20 mg 06/11/19 20:36 06/11/19 20:41 Pepcid 20mg/2ml Vial IV 06/11/19 20:37 20 mg ONCE ONE Administration Sodium Chloride 1,000 mls @ 999 mls/hr 06/11/19 20:45 06/11/19 20:42 Sod Chlor 0.9% 1000ml Bag IV 06/11/19 21:45 999 mls/hr .Q1H1M JACKIE Administration Ketorolac Tromethamine 30 mg 06/11/19 20:36 06/11/19 20:41 Toradol 30mg/Ml Vial IV 06/11/19 20:37 30 mg ONCE ONE Administration Metoclopramide HCl 10 mg 06/11/19 20:36 06/11/19 20:42 Reglan 10mg/2ml Vial IVP 06/11/19 20:37 10 mg ONCE ONE Administration Morphine Sulfate 4 mg 06/11/19 20:41 06/11/19 20:43 Morphine 4mg/Ml Syringe IV 06/11/19 20:42 4 mg ONCE ONE Administration Ondansetron HCl 4 mg 06/11/19 20:36 06/11/19 20:42 Zofran 4mg/2ml Vial IV 06/11/19 20:37 4 mg ONCE ONE Administration ORDERS Category Date Time Status CT abdomen pelvis wo con Stat Cat Scan 06/11/19 20:32 Taken XR chest AP Stat Exams 06/11/19 20:32 Taken Blood Culture Stat Micro 06/11/19 20:20 Received - Radiology Data #1 Image(s): Chest Image Reviewed: Yes I reviewed the patient's radiology image Preliminary Findings: Normal/NAD - ECG Data Tracing #1 Arrhythmias present: sinus tach Ischemic changes: non-specific ST-T wave changes Conduction abnormalities present: LBBB Nausea/Vomiting/Diarrhea HPI - General Chief complaint: Abdominal Pain Stated complaint: abd pain Time Seen by Provider: 06/11/19 20:35 Mode of Arrival: EMS Source of Information: Patient, Spouse, EMS, Medical Record Limitations: No Limitations Description of Symptoms (Recalled from ER Triage Doc. by RN): Pt states he has upper abd pain w/ N/V/D - History of Present Illness HPI Narrative: this wm with known metastic colon cancer who had recent admit and has been to [facility] since - he has no vomiting or diarrhea - he presented with ant chest pain episode - no melena and no fever but has dec po intake - MD complaint: nausea, abdominal pain Onset (ago): hour(s) Associated Abdominal Pain: Yes Location of pain: epigastric Severity: moderate Associated symptoms: denies other symptoms - Related Data Home Medications Medication Instructions Recorded Confirmed oxycodone 5 mg capsule 10 mg PO Q4-6H PRN 09/19/18 06/11/19 Enoxaparin Sodium [Lovenox 150 mg SQ DAILY 10/03/18 06/11/19 150mg/mL syringe] Dronabinol 5 mg PO BIDP PRN 05/27/19 06/11/19 Morphine Sulfate [Morphine Sulfate 15 mg PO BID 05/27/19 06/11/19 ER 15mg Tab] Ondansetron HCl [Ondansetron 4mg 4 mg PO NEEDED PRN 05/27/19 06/11/19 Tablet] Allergies Allergy/AdvReac Type Severity Reaction Status Date / Time No Known Allergies Allergy Verified 05/17/19 15:59 [facility] History - Hepatitis A Screen Drug use history?: No High risk sexual behaviors?: No History of sexually transmitted infection?: No Currently employed?: No Childcare worker?: No Do you have indoor plumbing?: Yes Do you have electricity?: Yes Attestation statement:: This patient has been screened for Hepatitis A risk factors. I have reviewed the patient's past medical history: Yes Medical History: Reports:: Cancer (Stage III colon cancer with metastases to the liver), Diabetes Mellitus Type 2, Hypertension Denies:: Diabetes Mellitus Type 1, Internal Pacemaker, Lung Disease, MRSA, Seizures Other Medical History: Denies: Blood Transfusion Reaction Laterality Cases: Left: Arthroscopy Shoulder Other Surgeries: Yes: Appendectomy, Colonoscopy, Colon Resection, Sinus Surgery, Other (port placement). No: Pacemaker Amputation: No Fractures: Yes Comment: Vasectomy, rhinoplasty, adrenalectomy, rotator cuff surgery, Port cath placement - Social History Smoking Status: Current every day smoker Tobacco Type: cigarettes # Packs/Day (cigarettes): 1 #Yrs smoked (if former smoker): 40 Alcohol Intake: never Alcohol Intake Frequency:: other Substance Use Type: denies use Occupational Status: employed Housing: house Household Members: spouse, children Family Hx:: Diabetes, Stroke, Hypertension, Cancer, Kidney Disease ROS Obtained: Yes All systems reviewed & no additional complaints - Constitutional Constitutional: Denies fever(s) - Eyes Eyes: Denies change in vision - ENT Ears, Nose, Mouth, and Throat: Denies facial pain - Cardiovascular Cardiovascular: Reports chest pain, Denies dyspnea - Respiratory Respiratory: No cough - Gastrointestinal Gastrointestingal: Reports: as per HPI, abdominal pain, nausea, vomiting. Denies: bloating - Genitourinary Male Genitourinary: Denies hematuria - Musculoskeletal Musculoskeletal: Denies joint pain - Integumentary/Breasts Skin/Breast: Denies rash - Neurologic Neurologic: Reports as per HPI, Reports focal weakness, Denies seizure-like activity Physical Exam - General General appearance: alert - Head Head exam: normocephalic - Eye Eye exam: Present: PERRL, EOMI - ENT ENT exam: Present: mucous membranes dry - Neck Neck exam: Present: trachea midline - Respiratory Respiratory exam: Present: normal lung sounds bilaterally. Absent: respiratory distress - Cardiovascular Cardiovascular exam: Present: regular rate, systolic murmur - Abdominal Exam Abdominal exam: Present: soft, tenderness Abdominal tenderness: Present: epigastrium, moderate - Extremities Exam Extremities exam: Absent: tenderness - Neurological Exam Neurological exam: Present: alert, CN II-XII intact - Psychiatric Psychiatric exam: Present: anxious - Skin Skin exam: Absent: rash
[2019-06-11 21:37] LABS: Erythrocyte Sedimentation Rate 132 mm/hr (0-20)
--- NOTE | 2019-06-12 07:30 | History & Physical Report ---
*Admission Date: 06/11/19 *Chief complaint: Abdominal pain *History of present illness: 69-year-old male with history of colon cancer that has now metastasized to the liver and on CT scanning denser the emergency department adrenal glands and lungs presented to the emergency department with epigastric abdominal pain and chest pain that was unrelenting at home and he needed pain relief. Patient was brought to the emergency department and his pain was controlled. CT scan revealed findings of ileus versus partial small bowel obstruction versus enterocolitis. Patient was not vomiting and was having bowel movements. Patient was admitted overnight for IV fluid rehydration due to acute kidney injury [facility] History I have reviewed the patient's past medical history: Yes Medical History: Reports:: Cancer (Stage III colon cancer with metastases to the liver), Diabetes Mellitus Type 2, Hypertension Denies:: Diabetes Mellitus Type 1, Internal Pacemaker, Lung Disease, MRSA, Seizures *Have you ever received a pneumonia vaccine?: Yes *Have you received a flu vaccine this season?: Yes Other Medical History: Denies: Blood Transfusion Reaction Laterality Cases: Left: Arthroscopy Shoulder Other Surgeries: Yes: Appendectomy, Colonoscopy, Colon Resection, Sinus Surgery, Other (port placement). No: Pacemaker Amputation: No Fractures: Yes - *Social History Smoking Status: Current every day smoker Tobacco Type: cigarettes # Packs/Day (cigarettes): 1 #Yrs smoked (if former smoker): 40 Alcohol Intake: never Alcohol Intake Frequency:: other Substance Use Type: denies use *Occupational Status:: employed Housing: house Household Members: spouse, children *Travel in the last 8 weeks: None - Psychiatric History Expresses thoughts of harming self/others: None Suicide Plan Description: No Plan Family Hx:: Diabetes, Stroke, Hypertension, Cancer, Kidney Disease Review of Systems - Review of Systems Review of systems:: pertinent systems reviewed and negative unless documented below - Constitutional Reports anorexia, Reports lack of energy, Denies chills - *Cardiovascular Reports chest pain - *Respiratory Denies change in phlegm color, Denies chest congestion, Denies cough - *Gastrointestinal Reports abdominal pain - *Neurologic Reports localized weakness, Denies seizure-like activity Meds Home Medications Medication Instructions Recorded Confirmed Type oxycodone 5 mg capsule 10 mg PO Q4-6H PRN 09/19/18 06/11/19 History Enoxaparin Sodium [Lovenox 150 mg SQ DAILY 10/03/18 06/11/19 History 150mg/mL syringe] Dronabinol 5 mg PO BIDP PRN 05/27/19 06/11/19 History Morphine Sulfate [Morphine Sulfate 15 mg PO BID 05/27/19 06/11/19 History ER 15mg Tab] Ondansetron HCl [Ondansetron 4mg 4 mg PO NEEDED PRN 05/27/19 06/11/19 History Tablet] Allergies Allergy/AdvReac Type Severity Reaction Status Date / Time No Known Allergies Allergy Verified 05/17/19 15:59 Exam Vital signs and Labs for Last 24 Hours: Temp Pulse Resp BP Pulse Ox 97.5 F L 85 18 94/48 L 98 06/12/19 04:00 06/12/19 04:00 06/12/19 04:00 06/12/19 04:00 06/12/19 04:00 Laboratory Results - last 24 hr 06/11/19 20:20: WBC 8.0, RBC 4.09 L, Hgb 11.4 L, Hct 34.8 L, MCV 85.2, MCH 27.9, MCHC 32.8, RDW 15.7, Plt Count 370, MPV 6.9 L, Neut % (Auto) 62.0, Lymph % (Auto) 30.3, [place] % (Auto) 6.7, Eos % (Auto) 0.5, Baso % (Auto) 0.4, Neut # (Auto) 5.0, Lymph # (Auto) 2.4, [place] # (Auto) 0.5, Eos # (Auto) 0.0, Baso # (Auto) 0.0, ESR 132 H 06/11/19 20:20: Sodium 134 L, Potassium 3.3 L, Chloride 97 L, Carbon Dioxide 22, Anion Gap 18.3 H, BUN 77 H, Creatinine 2.54 H, Estimated Creat Clear 30, Estimated GFR 25 L, Est GFR ( Amer) 31 L, Glucose 114 H, Calcium 8.3 L, Total Bilirubin 0.9, Direct Bilirubin 0.3 H, Indirect Bilirubin 0.6, AST 27, ALT 18, Alkaline Phosphatase 266 H, Troponin I < 0.02, C-Reactive Protein 19.1 H, Total Protein 6.2 L, Albumin 2.0 L, Amylase 23 L, Lipase 142 06/11/19 20:20: Lactate 1.5 06/11/19 22:05: Ammonia 28 06/12/19 03:10: Troponin I < 0.02 I & O for Last 24 hours: Intake & Output 06/09/19 06/10/19 06/11/19 06/12/19 11:59 11:59 11:59 11:59 Intake Total 1000 / 1000 Balance 1000 / 1000 Weight 167 lb 6 oz Narrative: Patient appears weak. Compared his last hospitalization he looks like he is aged. Oropharynx is dry. Neck has no lymphadenopathy. Lungs are clear. Heart has a regular rate and rhythm. Abdomen is soft with active bowel sounds. There is a palpable metastatic lesion just to the right of the epigastrium. E xtremities are warm to the touch and he has active range of motion in all extremities. Patient is oriented to person place and time. Assessment and Plan (1) CHRIS (acute kidney injury) Current visit: Yes Status: Acute Category: Medical Code(s): N17.9 - Acute kidney failure, unspecified (2) Enterocolitis Current visit: Yes Status: Acute Category: Medical Code(s): K52.9 - Noninfective gastroenteritis and colitis, unspecified (3) Metastatic colon cancer to liver Current visit: Yes Status: Acute Category: Medical Code(s): C18.9 - Malignant neoplasm of colon, unspecified; C78.7 - Secondary malignant neoplasm of liver and intrahepatic bile duct (4) Dehydration Current visit: No Status: Acute Category: Medical Code(s): E86.0 - Dehydration - Assessment and plan all Dx Assessment and Plan for all problems:: 1. Patient will be rehydrated with IV fluids 2. Discussed the role hospice could play in the patient's care. He is agreeable to hospice consultation.
--- NOTE | 2019-06-12 07:35 | Pharmacy Consult Notes ---
[facility] Pharmacy VTE Monitoring - Patient Demographics Admission date: 06/11/19 Report Date: 06/12/19 Time: 07:35 Allergies/Adverse Reactions: Patient Allergies No Known Allergies Allergy (Verified 05/17/19 15:59) Height: 1.83 m Weight: 75.92 kg Patient Problems: Current Active Problems CHRIS (acute kidney injury) (Acute) Metastatic colon cancer to liver (Acute) Enterocolitis (Acute) Cholecystitis (Acute) LBBB (left bundle branch block) (Acute) - VTE Risk Labs: VTE Related Lab Results Hgb 11.4 g/dL (14.1-18.0) L 06/11/19 20:20 Hct 34.8 % (42.0-52.0) L 06/11/19 20:20 Plt Count 370 K/mm3 (142-424) 06/11/19 20:20 BUN 77 mg/dL (7-18) H 06/11/19 20:20 Creatinine 2.54 mg/dL (0.70-1.30) H 06/11/19 20:20 Estimated Creat Clear 30 mL/min (50-200) 06/11/19 20:20 VTE Score: 6 VTE Risk Level: Moderate Risk - Prophylaxis VTE Prophylaxis Ordered?: Yes Types of VTE Prophylaxis: TEDS Knee High Location of Applied Device: Bilateral Lower Extremeties - VTE Diagnosis Confirmed Treatment or plan recommended: Continue Current Treatment
[2019-06-12 08:13] LABS: Basophils % 0.5 % (0.1-2.0); Eosinophils % 0.8 % (0.1-12.0); Lymphocytes # 1.5 K/mm3 (0.7-4.5); Lymphocytes % 30.6 % (10-50); Mean Corpuscular HGB Conc 32.5 g/dL (31.8-35.4); Mean Corpuscular Volume 87.1 fl (80-94); Monocytes # 0.4 K/mm3 (0.1-1.0); Monocytes % 8.6 % (1.7-9.3); Neutrophils % 59.6 % (37.0-80.0); Platelet Count 288 K/mm3 (142-424); Red Blood Count 3.45 M/mm3 (4.60-6.20)
[2019-06-12 08:16] LABS: Anion Gap 13.8 mEq/L (5-15); Calcium 7.6 mg/dL (8.5-10.1)
[2019-06-12 08:53] LABS: Hemoglobin 9.5 g/dL (14.1-18.0)
== END 2019-06-12 10:59 | disposition hospice, home (50) ==
LOC: ER 20:21 → 2ND 20:21
PROVIDERS: ADMIT Emergency Medicine; ATTEND Family Medicine
CPT/HCPCS: 36415; 71010; 71045; 74176; 80048; 80076; 82140; 82150; 83605; 83690; 84484; 85025; 85651; 86140; 87040; 96365; 96375; 99284; G0378; J2405